=== PATIENT | female | born 1985 ===

== ENCOUNTER 2025-05-24 13:57 | Outpatient (REF) | payer BC, SELFPAY ==
--- OUTSIDE RECORDS SUMMARY | 2025-05-24 14:48 | XMS_ITS | Clinical Summary ---
Author Organization [facility] Address [address] [place] [address] Phone Care Team Providers Care Carbon Lamp Cleaner Name Role Phone Carolyn Marin MD Primary Care Provider [phone] Surgical History Surgery Date Site/Laterality Comments SECTION PROCEDURE: HISTORICAL CERVICAL BIOPSY W/ LOOP ELEC TRODE EXCISION PROCEDURE: TX CONIZATION CERVIX W/WO D&C RPR ELTRD EXC SALPINGOOPHORECTOMY Bilateral PROCEDURE: TX LAPAROSCOPY W/RMVL ADNEXAL STRUCTURES; COMMENT: Salpingectomy only Medical History Medical History Date Comments Patient denies medical problems DX:Patient denies medical problems Family History Medical History Relation Name Comments No Known Problems Brother 1 No Known Problems Brother 2 No Known Problems Brother 3 No Known Problems Brother 4 Heart attack Father Other cancer Maternal Grandmother Stomach cancer Breast cancer Neg Hx Colon cancer Neg Hx Ovarian cancer Neg Hx Uterine cancer Neg Hx Relation Name Status Comments Brother 1 Alive Brother 2 Alive Brother 3 Alive Brother 4 Alive Father Maternal Grandmother Mother Alive Social History Tobacco Use Types Packs/Day Years Used Date Smoking Tobacco: Never Smokeless Tobacco: Never Alcohol Use Standard Drinks/Week Comments Yes 0 (1 standard drink = 0.6 oz pur e alcohol) Comments Unknown Sex and Gender Information Value Date Recorded Sex Assigned at Not on file Legal Sex Female 8:34 PM EST Gender Identity Not on file Sexual Orientation Not on file Obstetrics History Last Filed Vital Signs Vital Sign Reading Time Taken Comments Blood Pressure 125/75 12/23/2023 1:37 PM EDT Sitting R Arm Pulse 83 12/23/2023 1:37 PM EDT Temperature - - Respiratory Rate - - Oxygen Saturation - - Inhaled Oxygen Concentration - - Weight 73.6 kg (162 lb 3.2 oz) 12/23/2023 1:37 PM EDT Height 165.1 cm (5' 5 ) 12/23/2023 1:37 PM EDT Body Mass Index 26.99 12/23/2023 1:37 PM EDT Plan of Treatment Health Maintenance Due Date Last Done Comments Breast Cancer Screening 1983 Hepatitis B Vaccines (1 of 3 - 19+ 3-dose series) 2002 DTaP,Tdap,and Td Vaccines (2 - Td or Tdap) 07/20/2022 07/20/2012 HIV Screening 09/12/2022 Hepatitis C Screening 09/12/2022 Social Influencers of Health Screening 09/12/2022 COVID-19 Vaccine ( - 2023-2 5 season) 2024 Depression Screening 10/11/2024 Influenza Vaccine (#1) 2025 Cervical Cancer Screening: P ap Smear 12/22/2026 12/23/2023, 06/29/2018 HIB Vaccines Aged Out No longer eligi ble based on patient's age to complete this topic HPV Vaccines Aged Out No longer eligi ble based on patient's age to complete this topic Hepatitis A Vaccines Aged Out No long er eligible based on patient's age to complete this topic IPV Vaccines Aged Out No longer eligi ble based on patient's age to complete this topic MMR Vaccines Aged Out No longer eligi ble based on patient's age to complete this topic Meningococcal ACWY Vaccine Aged Out N o longer eligible based on patient's age to complete this topic Meningococcal B Vaccine Aged Out No l onger eligible based on patient's age to complete this topic Pneumococcal Vaccine: Pediatrics (0 to 5 Years) and At-Risk Patients (6 to 49 Years) Aged Out No longer eligible b ased on patient's age to complete this topic RSV Immunization Patients Under 20 months Aged Out No longer eligible b ased on patient's age to complete this topic Varicella Vaccines Aged Out No longer eligible based on patient's age to complete this topic Procedures Procedure Name Priority Date/Time Associated Diagnosis Comments PAP SMEAR Routine 12/23/2023 from Last 3 Months or Most Recently Relevant to Health Maintenance Results * Pap smear (12/23/2023) 12/23/2023 Narrative HISTORICAL TESTING LAB RESULTING AGENCY - 12/30/2023 4:36 PM EDT [id number] THINPREP PAP, IMAGED: NEGATIVE FOR SQUAMOUS INTRAEPITHELIAL LESION AND MALIGNANCY . KECIA KERN(ASCP) (CASE ELECTRONICALLY SIGNED 12 30 2023) RESULT OF APTIMA HIGH RISK HPV ASSAY: HIGH RISK HPV: NEGATIVE (SEROTYPES 16,18,31,33,35,39,45,51,52,56,58,59,66,68) COMPLETED ON 2023-12-27 ADEQUACY: SATISFACTORY ENDOCERVICAL/TRANSFORMATION ZONE COMPONENT PRESENT. SOURCE: THINPREP PAP HPV ANY DX: REFLEX 16 AND 18, CERVICAL, IMAGED CLINICAL INFORMATION: HPV ANY DIAGNOSIS. HORMONES, PAP HX NEGATIVE, [Z01.419] Bradly Miguel [facility] CYTOLOGY ORDERABLES Final Result HISTORICAL TESTING LAB RESULTING AGENCY from Last 3 Months or Most Recently Relevant to Health Maintenance [place] [address] [address] [place] [address] Care Teams Carbon Lamp Cleaner Relationship Specialty Start Date End Date Carolyn Marin MD PCP - General 11/18/22
--- OUTSIDE RECORDS SUMMARY | 2025-05-24 14:48 | XMS_ITS | Clinical Summary ---
Author Organization [facility] Address [address] [place] [address] Care Team Providers Care Math And Science Instructor Name Role Phone Shahid Navarro MD Primary Care Provider [phone] Allergies No known active allergies Medications Medication Sig Dispensed Refills Start Date End Date Status FLUoxetine (PROZAC) 20 MG capsule Take 20 mg by mouth daily. 0 Active escitalopram (LEXAPRO) 20 MG tablet Take 20 mg by mouth daily. 0 Active Active Problems Problem Noted Date Diagnosed Date Cholecystitis 01/13/2018 Menorrhagia with regular cycle 07/02/2017 Iron deficiency anemia due to chronic blood loss 07/02/2017 Family History Medical History Relation Name Comments No Sig Med Hx Brother Heart attack Father Hypertension Mother No Sig Med Hx Sister Relation Name Status Comments Brother Father Mother Sister Social History Tobacco Use Types Packs/Day Years Used Date Smoking Tobacco: Never Smokeless Tobacco: Never Alcohol Use Standard Drinks/Week Comments No 0 (1 standard drink = 0.6 oz pur e alcohol) Sex and Gender Information Value Date Recorded Sex Assigned at Not on file Gender Identity Not on file Sexual Orientation Not on file Last Filed Vital Signs Vital Sign Reading Time Taken Comments Blood Pressure 114/68 01/13/2018 1:08 PM EDT Pulse 72 01/13/2018 1:08 PM EDT Temperature - - Respiratory Rate - - Oxygen Saturation - - Inhaled Oxygen Concentration - - Weight 87.5 kg (193 lb) 01/13/2018 1:08 PM EDT Height 165.1 cm (5' 5 ) 01/13/2018 1:08 PM EDT Body Mass Index 32.12 01/13/2018 1:08 PM EDT Plan of Treatment Health Maintenance Due Date Last Done Comments Hepatitis B Vaccines (1 of 3 - 3-dose series) 1983 Hepatitis C Screening 1983 COVID-19 Vaccine (#1) 05/11/1984 Depression Screening 1995 Preventative Health Evaluation 2001 DTap / Tdap / Td (1 - Tdap) 2002 Cervical Cancer Screening (P ap Smear) 2004 Influenza Vaccine (#1) 2025 Pneumococcal Vaccine Aged Out No long er eligible based on patient's age to complete this topic RSV Ped < 20 months Aged Out No longe r eligible based on patient's age to complete this topic Care Teams Math And Science Instructor Relationship Specialty Start Date End Date Shahid Navarro MD [address] [place] [id number] PCP - General Internal Medicine 07/02/17
== END 2025-05-24 13:58 | disposition home or self-care (01) ==
LOC: CF 13:57
DX: Z13.89 Encounter for screening for other disorder (principal)

== ENCOUNTER 2025-05-31 08:19 | Outpatient (REF) | payer SELFPAY | END 2025-05-31 08:20 | disposition home or self-care (01) | LOC: HO.HOSX 08:19 | DX: Z13.89 Encounter for screening for other disorder (principal) ==

== ENCOUNTER 2025-06-13 11:53 | Outpatient (REF) | payer BC, SELFPAY ==
--- NOTE | ~2025-06-13 | XR_ITS ---
EXAMINATION: XR FOREARM, LEFT CLINICAL INFORMATION: S52.90XA - Unspecified fracture of unspecified forearm, initial encounte... COMPARISON: May 15, 2025 TECHNIQUE: AP and lateral views of the left forearm were obtained. FINDINGS: Again seen is an oblique fracture through the middle diaphysis of the ulna. There is periosteal new bone formation along the dorsal margin of the fracture surrounding a cortical fragment. On the AP view, there is 15 degrees angulation and ulnar direction, distal to the fracture. There is also ulnar directed bowing of the distal radius compared to the radial head that was present on the original x-ray. XR/XR forearm LT 2V IMPRESSION: Healing fracture involving middle third diaphysis of the ulna. Chronic bowing of the distal forearm with ulnar deviation. Electronically signed by: Jorge Cole MD 06/13/2025 01:43 PM EDT
--- OUTSIDE RECORDS SUMMARY | 2025-06-13 14:28 | XMS_ITS | Clinical Summary ---
Author Organization [facility] Address [address] [place] [address] Care Team Providers Care Hand Surgeon Name Role Phone Shahid Navarro MD Primary Care Provider [phone]- [phone] Allergies No known active allergies Medications Medication [...] age to complete this topic Care Teams Hand Surgeon Relationship Specialty Start Date End Date Shahid Navarro MD [address] [place] [id number] PCP - General Internal Medicine 07/02/17
--- OUTSIDE RECORDS SUMMARY | 2025-06-13 14:28 | XMS_ITS | Clinical Summary ---
Author Organization [facility] Address [address] [place] [address] Phone Care Team Providers Care Business Information Manager Name Role Phone Carolyn Marin MD Primary Care Provider [phone] Surgical History Surgery Date Site/Laterality Comments SECTION [...] 09/12/2022 Social Influencers of Health Screening 09/12/2022 Depression Screening 10/11/2024 COVID-19 Vaccine ( - 2023-2 5 season) 2025 Influenza Vaccine (#1) 2025 Cervical Cancer Screening: [...] RESULTING AGENCY - 12/30/2023 4:36 PM EDT [id number] THINPREP PAP, IMAGED: NEGATIVE FOR SQUAMOUS INTRAEPITHELIAL [...] HORMONES, PAP HX NEGATIVE, [Z01.419] Bradly Miguel [facility] LAB CYTOLOGY ORDERABLES Final Result HISTORICAL TESTING LAB RESULTING AGENCY from Last 3 Months or Most Recently Relevant to Health Maintenance [place] [address] [place] [address] Care Teams Business Information Manager Relationship Specialty Start Date End Date Carolyn Marin MD PCP - General 11/18/22
== END 2025-06-13 11:54 | disposition home or self-care (01) ==
LOC: HO.HOSX 11:53
DX: S52.202D Unspecified fracture of shaft of left ulna, subsequent encounter for closed fracture with routine healing (principal); W10.9XXD Fall (on) (from) unspecified stairs and steps, subsequent encounter
CPT/HCPCS: 25530; 73090; 99202

== ENCOUNTER 2025-06-13 12:54 | Outpatient (AMB) | payer SELFPAY ==
--- NOTE | 2025-06-13 13:17 | A.OFFVIS_ITS ---
Vital Signs 06/13/25 13:26 Height 5 ft 5 in Weight 157 lb BMI 26.1 Handedness Right Intake Visit Reasons: UC f/u- LT ulnar fx DOI 05/15/25 Intake Note: Genet is a 39 year old right hand dominant woman who presents today for a fracture care visit for her left arm. Patient was seen at [facility] in [facility], DOI: 05/15/25. Reports she was going down her basement stairs with her laundry basket in her hands, unsure of how she tripped and fell. This is a FOOSH injury. Denies numbness and tingling. Reports she has pain at night after using her arm throughout the day. Splint was removed for x-rays and she states an increase in pain without the splint. She was prescribed ibuprofen 800 mg, if she is in a lot of pain she will take this before bed with relief. Splint was applied on 05/15/25 at urgent care and she says she has not removed it since. 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 She would like to discuss work status today. HPI HPI UC f/u- LT ulnar fx DOI 05/15/25: Details: Genet is a 39 year old right hand dominant woman who presents today for a fracture care visit for her left arm. Patient was seen at [facility] in [facility], DOI: 05/15/25. Reports she was going down her basement stairs with her laundry basket in her hands, unsure of how she tripped and fell. This is a FOOSH injury. Denies numbness and tingling. Reports she has pain at night after using her arm throughout the day. Splint was removed for x-rays and she states an increase in pain without the splint. She was prescribed ibuprofen 800 mg, if she is in a lot of pain she will take this before bed with relief. Splint was applied on 05/15/25 at urgent care and she says she has not removed it since. 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 She would like to discuss work status today. 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 Neuro: Normal sensation of the tips of all digits of the left hand at this time Vascular: Cap refill brisk Pain: No tenderness to palpation about left forearm, particularly over the ulnar shaft of the fracture ROM: Patient is able to make a closed fist and extend all digits of the left hand fully Range of motion of the left wrist slightly impaired Skin: No lacerations or abrasions. General: No ecchymosis, erythema, or evidence of infection. Psych: Appears grossly normal Affect normal Attitude cooperative Office Procedures AMB Fracture Care Fracture Billing Code: Fracture Billing Code Casting/Splints [id number]-[id number] Cast Application Procedure code (CPT) selection complete Results Reviewed Results Reviewed: X-rays obtained in the office today and independently reviewed by me, Clayton Duff PA-C, demonstrate minimally displaced fracture of the left ulnar shaft with evidence of early interval bony healing. Assessment & Plan Assessment & Plan (1) Fracture of left ulna, shaft: Code(s): S52.A - Unspecified fracture of shaft of left ulna, initial encounter for closed fracture Category: Medical Plan 1. Left ulnar shaft fracture Date of injury 05/15/2025 Patient is educated about this condition Patient is educated about the typical treatment course At this time, patient is placed into a short-arm cast that and just below the elbow Is encouraged to begin working on gentle range of motion of the left elbow, as placement into a sugar-tong splint for a month prior to being evaluated his likely caused some degree of stiffness in the left elbow OT also ordered for gentle range of motion of the left elbow Patient is to remain in his cast for 4 weeks Patient is educated on proper cast care and precautions Patient is educated she should not be doing any heavy lifting with the left hand, 2 lb weight limit strictly enforced Patient is advised that she can return to work on a light duty basis as long as there is accommodation for this 2 lb weight limit and keeping the cast clean and dry Follow-up in 4 weeks with repeat x-rays for reassessment, anticipate cast removal at that time, sooner with any acute concerns Orders: Orders XR forearm LT 2V 06/13/25 S52.209A - Unspecified fracture of shaft of unspecified ulna, initial encounter for closed fracture, S52.90XA - Unspecified fracture of unspecified forearm, initial encounter for closed fracture OT Evaluation and Treatment 06/13/25 S52.202A - Unspecified fracture of shaft of left ulna, initial encounter for closed fracture Coding Level of Care Code New Pt Level 3 (67588) Diagnoses Fracture of left ulna, shaft S52.202A CPT Codes Fracture Care - Fracture Billing Code: Fracture Billing Code ([id number]) Casting - CPT: 93578-[id number] Cast Application ([id number])
[2025-06-13 13:26] VITALS: BMI 26.1
== END 2025-06-13 14:34 | disposition home or self-care (01) ==
LOC: HO.HOS 12:55
DX: S52.202A Unspecified fracture of shaft of left ulna, initial encounter for closed fracture (principal)
CPT/HCPCS: 25530; 99203

== ENCOUNTER → 2025-06-13 13:01 | Outpatient (BNV) | payer BC, SELFPAY | PROVIDERS: Visit Provider Radiology Diagnostic Radiology | DX: S52.235D Nondisplaced oblique fracture of shaft of left ulna, subsequent encounter for closed fracture with routine healing (principal) | CPT/HCPCS: 73090 ==

== ENCOUNTER 2025-07-10 09:12 | Outpatient (REF) | payer BC, SELFPAY ==
--- NOTE | ~2025-07-10 | XR_ITS ---
EXAMINATION: XR FOREARM 2 VIEWS LEFT HISTORY: S52.90XA - Unspecified fracture of unspecified forearm, initial encounter... COMPARISON: Comparison is made with the prior examination dated 06/13/2025. FINDINGS: AP and lateral views of the left forearm are submitted. Osseous mineralization is normal. Again seen is a fracture of the mid to distal ulna diaphysis. There is greater callus formation noted, consistent with healing. The fracture line remains visible. The visualized wrist and elbow joint spaces are preserved. The soft tissues are unremarkable. XR/XR forearm LT 2V IMPRESSION: Healing fracture of the mid to distal ulna. Electronically signed by: Julio Nieto MD 07/10/2025 01:15 PM EDT
--- OUTSIDE RECORDS SUMMARY | 2025-07-10 09:57 | XMS_ITS | Patient Health Record ---
Author Organization [facility] [place] Address [address] [place] [address] Care Team Providers Care Beer Still Runner Compounder Name Role Phone Trish Fierro Unavailable [phone] Allergies No Known Allergies Reason For Referral Reason fell three weeks ago and fx her left arm. Did not get referred at that time. Still has original splint and some residual pain. Has appointment at [facility] tomorrow Diagnosis 1 Unspecified fracture of shaft of left ulna, initial encounter for closed fracture (S52.A) Referral Organization [facility] Referring Provider First Name Trish Referring Provider Last Name Sri Referred Provider Specialty Orthopedic S urgery Referral Priority Routine Reason patient wants to res ume iron infusions Diagnosis 1 Iron deficiency anem ia, unspecified (D50.9) Referral Organization [facility] Referring Provider First Name Trish Referring Provider Last Name Sri Referred Provider Specialty Hematology General Notes Sri Trish L 01:41:39 PM > Patient reports she was infused in the cancer treatment center Referral Priority Routine Medications Medication SIG (Take, Route, Frequency, Duration) Notes Start Date End Date Status Semaglutide (2 MG/DOSE) 8 MG/3ML Solution Pen-injector 1.25ml Subcutaneous weekly; Duration: 90 days 06/12/2025 Active Problems Problem Type SNOMED Code ICD Code Onset Dates Problem Status W/U Status Risk Notes Problem Iron deficiency anemia (63216873) Iron deficiency anemia, unspecified (D50.9) Active confirmed Vital Signs Heart Rate 79 /min 06/12/2025 Respiratory Rate 18 /min 06/12/2025 Blood pressure diastolic 80 mm Hg 06/12/2025 Weight-kg 70.76 kg 06/12/2025 Blood pressure systolic 120 mm Hg 06/12/2025 Weight 156 lbs 06/12/2025 Encounters Encounter Location Date Provider Diagnosis [facility] [place] [address] [place] [address] 06/12/2025 [facility] discharge follow-up Z09 and Weight loss counseling, encounter for Z71.3 Assessments Encounter Date Diagnosis (ICD Code) Assessment Notes Treatment Notes Treatment Clinical Notes Section Notes 06/12/2025 Weight loss counseling, encounter for (ICD-10 - Z71.3) patient seen in urgent care three weeks ago. Presents today for a referral to [facility] as she has a f/u appointlent tomorrow 06/12/2025 Hospital discharge follow-up (ICD-10 - Z09) patient seen in urgent care three weeks ago. Presents today for a referral to [facility] as she has a f/u appointlent tomorrow Plan Of Treatment No Information Insurance Providers Payer Name Payer Address Payer Phone Subscriber Number Group Number Insured Name Patient Relationship to Insured Coverage Start Date Coverage End Date Danilo [facility] [address] [address] [place] [address] [id number] TONY [id number] Self - patient is the insured
--- OUTSIDE RECORDS SUMMARY | 2025-07-10 09:57 | XMS_ITS | Clinical Summary ---
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 Construction Plant Operator Name Role Phone Bimal Baker MD Primary Care Provider [phone] Allergies No known active allergies Medications No known medications Active Problems Problem Noted Date Diagnosed Date Iron deficiency anemia due to chronic blood loss 07/02/2025 Encounters Date Type Department Care Team Description 07/02/2025 3:15 PM EDT Office Visit [facility] Hematology Oncology [address] [place] [phone] Kin Staton MD Microcytic anemia (Primary Dx); Iron deficiency anemia 06/25/2025 5:55 PM EDT - 06/25/2025 9:43 PM EDT Emergency [facility] Emergency [address] [place] [phone] Cole Hyatt MD Depression, unspecified depression type (Primary Dx); Anxiety Discharge Disposition: Home or Self Care 06/22/2025 Telephone [facility] Hematology Oncology [address] [place] [phone] Trish Fierro NP from Last 3 Months Surgical History Surgery Date Site/Laterality Comments SECTION PROCEDURE: HISTORICAL CERVICAL BIOPSY W/ LOOP ELEC TRODE EXCISION PROCEDURE: OH CONIZATION CERVIX W/WO D&C RPR ELTRD EXC SALPINGOOPHORECTOMY Bilateral PROCEDURE: OH LAPAROSCOPY W/RMVL ADNEXAL STRUCTURES; COMMENT: Salpingectomy only Medical History Medical History Date Comments Patient denies medical problems DX:Patient denies medical problems Anemia Family History Medical History Relation Name Comments [...] Sign Reading Time Taken Comments Blood Pressure 122/70 07/02/2025 3:20 PM EDT Pulse 77 07/02/2025 3:20 PM EDT Temperature 37 C (98.6 F) 07/02/2025 3:20 PM EDT Respiratory Rate 18 06/25/2025 5:39 PM EDT Oxygen Saturation 100% 07/02/2025 3:20 PM EDT Inhaled Oxygen Concentration - - Weight 70.8 kg (156 lb) 07/02/2025 3:20 PM EDT Height 165.1 cm (5' 5 ) 07/02/2025 3:20 PM EDT Body Mass Index 25.96 07/02/2025 3:20 PM EDT Plan of Treatment Upcoming Encounters Date Type Department Care Team (Late st Contact Info) Description 07/11/2025 1:00 PM EDT Appointment [facility] Infusion Center [address] [place] [phone] 09/10/2025 11:15 AM EST Office Visit [facility] Hematology Oncology [address] [place] [phone] Kin Staton MD [address] [place] [phone] Health Maintenance Due Date Last Done Comments Breast Cancer Screening 1983 Hepatitis B Vaccines (1 of 3 - 19+ 3-dose series) 2002 HPV Vaccines (1 - 3-dose SCD M series) 2010 DTaP,Tdap,and Td Vaccines (2 - Td or Tdap) 07/20/2022 07/20/2012 HIV Screening 09/12/2022 Hepatitis C Screening 09/12/2022 Social Influencers of Health Screening 09/12/2022 Depression Screening 10/11/2024 COVID-19 Vaccine ( - 2023-2 5 season) 2025 Influenza Vaccine (#1) 2025 Cervical Cancer Screening: P ap Smear 12/22/2026 12/23/2023, 06/29/2018 RSV Immunization Adult Patients (1 - 1-dose 75+ series) 2058 HIB Vaccines Aged Out No longer eligi [...] Procedure Name Priority Date/Time Associated Diagnosis Comments CBC WITH AUTO DIFFERENTIAL Routine 07/02/2025 3:50 PM EDT Microcytic anemia HEMOGLOBIN ELECTROPHORESIS Routine 07/02/2025 3:50 PM EDT Microcytic anemia VITAMIN B12 AND FOLATE Routine 3:50 PM EDT Microcytic anemia IRON AND TIBC Routine 07/02/2025 3:50 PM EDT Microcytic anemia FERRITIN Routine 07/02/2025 3:50 PM EDT Microcytic anemia CBC AND DIFFERENTIAL Routine 07/02/2025 3:50 PM EDT Microcytic anemia ECG ANNOTATED 06/26/2025 POC , URINE DIAGNOSTIC STAT 06/25/2025 6:49 PM EDT METHADONE SCREEN, URINE STAT 06/25/20 6:44 PM EDT PHENCYCLIDINE, URINE STAT 06/25/2025 6:44 PM EDT BUPRENORPHINE SCREEN, URINE STAT 06/25/2025 6:44 PM EDT DRUG ABUSE SCREEN 8A PANEL, URINE STAT 06/25/2025 6:44 PM EDT CBC WITH AUTO DIFFERENTIAL STAT 06/25/2025 6:43 PM EDT SALICYLATE LEVEL STAT 06/25/2025 6:43 PM EDT ETHANOL STAT 06/25/2025 6:43 PM EDT ACETAMINOPHEN LEVEL STAT 06/25/2025 6 :43 PM EDT THYROID STIMULATING HORMONE WITH REFLEX TO FREE T4 AND FREE T3 STAT 06/25/2025 6:43 PM EDT COMPREHENSIVE METABOLIC PANEL STAT 06/25/2025 6:43 PM EDT CBC AND DIFFERENTIAL STAT 06/25/2025 6:43 PM EDT ECG 12-LEAD STAT 06/25/2025 5:30 PM EDT IRON Routine 06/22/2025 1:23 PM EDT Iron deficiency anemia, unspecified PAP SMEAR Routine 12/23/2023 from Last 3 Months or Most Recently Relevant to Health Maintenance Results * (ABNORMAL) Vitamin B12 and folate (07/02/2025 3:50 PM EDT) [facility] Vitamin B-12 1,710(H) 250 - 900 pcg/mL LAB CHEMISTRY METHOD 07/02/2025 5:39 PM EDT [facility] Folate 13.7 2.8 - 17.0 ng/ml LAB CHEMISTRY METHOD 07/02/2025 5:39 PM EDT [facility] Blood Venous blood specimen / Unknown Venipuncture / Unknown 07/02/2025 3:50 PM EDT 07/02/2025 4:31 PM EDT [facility] Nury Staton MD LAB BLOOD ORDERABLES Final R esult [facility] [address] [place] [address], [place] [phone] * (ABNORMAL) CBC auto differential (07/02/2025 3:50 PM EDT) Only the most recent of2 resultswithin the time period is included. [facility] WBC 5.9 4.8 - 10.8 K/mcL LAB HEMETOLOGY METHOD 07/02/2025 4:43 PM EDT [facility] RBC 4.60 3.80 - 4.80 M/mcL LAB HEMETOLOGY METHOD 07/02/2025 4:43 PM EDT [facility] Hemoglobin 8.1(L) 11.5 - 16.0 g/dL LAB HEMETOLOGY METHOD 07/02/2025 4:43 PM EDT [facility] Hematocrit 28.1(L) 35.0 - 47.0 % LAB HEMETOLOGY METHOD 07/02/2025 4:43 PM [facility] MCV 61.2(L) 79.0 - 98.0 FL LAB HEMETOLOGY METHOD 07/02/2025 4:43 PM [facility] MCH 17.6(L) 27.0 - 32.0 pcg LAB HEMETOLOGY METHOD 07/02/2025 4:43 PM [facility] MCHC 28.8(L) 32.0 - 37.0 g/dL LAB HEMETOLOGY METHOD 07/02/2025 4:43 PM [facility] RDW 20.0(H) 11.0 - 15.0 % LAB HEMETOLOGY METHOD 07/02/2025 4:43 PM [facility] Platelets 550(H) 130 - 400 K/mcL LAB HEMETOLOGY METHOD 07/02/2025 4:43 PM [facility] MPV 10.0 7.0 - 11.0 FL LAB HEMETOLOGY METHOD 07/02/2025 4:43 PM [facility] NRBC 0.0 <1.0 % LAB HEMETOLOGY METHOD 07/02/2025 4:43 PM [facility] NRBC Absolute 0.00 <0.10 K/mcL LAB HEMETOLOGY METHOD 07/02/2025 4:43 PM [facility] Neutrophils Relative 63.4 % LAB HEMETOLOGY METHOD 07/02/2025 4:43 PM [facility] Lymphocytes Relative 23.1 % LAB HEMETOLOGY METHOD 07/02/2025 4:43 PM [facility] Monocytes Relative 8.6 % LAB HEMETOLOGY METHOD 07/02/2025 4:43 PM [facility] Eosinophils Relative 4.1 % LAB HEMETOLOGY METHOD 07/02/2025 4:43 PM [facility] Basophils Relative 0.5 % LAB HEMETOLOGY METHOD 07/02/2025 4:43 PM EDT [facility] Immature Granulocytes Relative 0.3 % LAB HEMETOLOGY METHOD 07/02/2025 4:43 PM EDT [facility] Neutrophils Absolute 3.74 1.50 - 7.00 K/mcL LAB HEMETOLOGY METHOD 07/02/2025 4:43 PM EDT [facility] Lymphocytes Absolute 1.36 1.00 - 5.00 K/mcL LAB HEMETOLOGY METHOD 07/02/2025 4:43 PM EDT [facility] Monocytes Absolute 0.51 0.20 - 1.00 K/mcL LAB HEMETOLOGY METHOD 07/02/2025 4:43 PM EDT [facility] Eosinophils Absolute 0.24 0.00 - 0.50 K/mcL LAB HEMETOLOGY METHOD 07/02/2025 4:43 PM EDT [facility] Basophils Absolute 0.03 0.00 - 0.20 K/mcL LAB HEMETOLOGY METHOD 07/02/2025 4:43 PM EDT [facility] Immature Granulocytes Absolute 0.02 0.00 - 0.03 K/mcL LAB HEMETOLOGY METHOD 07/02/2025 4:43 PM EDT [facility] Blood Venous blood specimen / Unknown Venipuncture / Unknown 07/02/2025 3:50 PM EDT 07/02/2025 4:31 PM EDT us Kin Staton MD LAB BLOOD ORDERABLES Final R esult [facility] [address] [place] [address], * (ABNORMAL) Hemoglobin electrophoresis (07/02/2025 3:50 PM EDT) Hemoglobin A1 98.9(H) 96.5 - 97.8 % 07/05/2025 11:44 AM EDT [facility] Hemoglobin A2 1.1(L) 2.2 - 3.2 % 07/05/2025 11:44 AM EDT [facility] Hemoglobin F 0.0 <2.0 % 07/05/2025 11:44 AM EDT [facility] Hemoglobin S 0.0 0.0 % 07/05/2025 11:44 AM EDT [facility] Hemoglobin C 0.0 0.0 % 07/05/2025 11:44 AM EDT [facility] Interpretation See Below 07/05/2025 11:44 AM EDT [facility] Comment: No abnormal hemoglobin variants seen on hemoglobin electrophoresis. Hemoglobin A2 is decreased. Common causes include, but are not limited to, iron deficiency, alpha thalassemia, and delta thalassemia. Test performed at [facility], [address] , [place] [address] Abigail Perez MD, PhD - Machinist Linotype Blood Venous blood specimen / Unknown Venipuncture / Unknown 07/02/2025 3:50 PM EDT 07/02/2025 4:31 PM EDT us Kin Staton MD LAB BLOOD ORDERABLES Final R esult [facility] [address] [place] [address] * (ABNORMAL) Iron and TIBC (07/02/2025 3:50 PM EDT) Iron 10(L) 40 - 150 mcg/dL LAB CHEMISTRY METHOD 07/02/2025 5:39 PM EDT [facility] TIBC 463(H) 250 - 450 mcg/dL LAB CHEMISTRY METHOD 07/02/2025 5:39 PM EDT [facility] Iron Saturation 2(L) 15 - 50 % LAB CHEMISTRY METHOD 07/02/2025 5:39 PM EDT [facility] Blood Venous blood specimen / Unknown Venipuncture / Unknown 07/02/2025 3:50 PM EDT 07/02/2025 4:31 PM EDT Kin Staton MD LAB BLOOD ORDERABLES Final R esult [facility] [address] [place] [address], [place] [phone] * (ABNORMAL) Ferritin (07/02/2025 3:50 PM EDT) [facility] Ferritin 3(L) 8 - 252 ng/mL LAB CHEMISTRY METHOD 07/02/2025 5:55 PM EDT [facility] Comment:Results verified by repeat testing Blood Venous blood specimen / Unknown Venipuncture / Unknown 07/02/2025 3:50 PM EDT 07/02/2025 4:31 PM EDT Kin Staton MD LAB BLOOD ORDERABLES Final R esult Performing Organization Address City/[facility]/ZIP Co de Phone Number [facility] [address] [place] [address], [place] [phone] * ECG-Annotated (06/26/2025) Result [facility] Provider Onbase ECG ORDERABLES Final Result * POC , urine manually resulted (06/25/2025 6:49 PM EDT) [facility] HCG, Ur POC Negative Negative POC hCG Int QC Pass? Yes Yes EXPIRATION DATE POC 12/19/2026 LOT NUMBER POC [id number] Urine Urine specimen obtained by clean catch procedure / Unknown 06/25/2025 6:49 PM EDT Cole Hyatt MD POINT OF CARE TEST ENTER/EDIT OR DERABLES Final Result * Drug abuse screen 8a panel, urine (06/25/2025 6:44 PM EDT) [facility] Amphetamine Screen, Ur Negative Negative LAB CHEMISTRY METHOD 06/25/2025 7:40 PM EDT [facility] Comment:Certain OTC medicati ons containing ephedrine, phenylephrine, pseudoephedrine and phenylpropanolamine can cause false positive results. Barbiturate Screen, Ur Negative Negative LAB CHEMISTRY METHOD 06/25/2025 7:40 PM EDT [facility] Benzodiazepine Screen, Ur Negative Negative LAB CHEMISTRY METHOD 06/25/2025 7:40 PM EDT [facility] Cocaine Screen, Ur Negative Negative LAB CHEMISTRY METHOD 06/25/2025 7:40 PM EDT [facility] Opiate Screen, Ur Negative Negative LAB CHEMISTRY METHOD 06/25/2025 7:40 PM EDT [facility] Cannabinoid (THC) Screen, Ur Negative Negative LAB CHEMISTRY METHOD 06/25/2025 7:40 PM EDT [facility] Comment:Specimens from patie nts taking pantoprazole sodium (Protonix) have been shown to produce false positive results. Oxycodone Screen, Ur Negative Negative LAB CHEMISTRY METHOD 06/25/2025 7:40 PM EDT [facility] Fentanyl, Ur Negative Negative LAB CHEMISTRY METHOD 06/25/2025 7:40 PM EDT [facility] Urine Urine specimen obtained by clean catch procedure / Unknown Non-blood Collection / Unknown 06/25/2025 6:44 PM EDT 06/25/2025 6:58 PM EDT Narrative [facility] - 06/25/2025 7:40 PM EDT Assay cutoffs: Amphetamines 1000 ng/mL Barbiturates 200 ng/mL Benzodiazepines 200 ng/mL Cocaine 300 ng/mL Fentanyl 1 ng/mL Opiates 300 ng/mL Oxycodone 100 ng/mL THC 50 ng/mL Semi-quantitative assay for screening purposes only. Unconfirmed screening result should not be used for non-medical purposes. *ALTERNATE METHOD CONFIRMATION DONE UPON REQUEST ONLY* us Cole Hyatt MD LAB URINE ORDERABLES Final Resul t [facility] [address] [place] [address], [place] [phone] * Buprenorphine screen, urine (06/25/2025 6:44 PM EDT) [facility] Buprenorphine Screen Urine Negative Negative LAB CHEMISTRY METHOD 06/25/2025 7:40 PM EDT [facility] Urine Urine specimen obtained by clean catch procedure / Unknown Non-blood Collection / Unknown 06/25/2025 6:44 PM EDT 06/25/2025 6:58 PM EDT Narrative [facility] - 06/25/2025 7:40 PM EDT Assay cutoff 5 ng/mL Semi-quantitative assay for screening purposes only. Unconfirmed screening result should not be used for non-medical purposes. *ALTERNATE METHOD CONFIRMATION DONE UPON REQUEST ONLY* us Cole Hyatt MD LAB URINE ORDERABLES Final Resul t Performing Organization Address City/[facility] Co de Phone Number [facility] [address] [place] [address], [place] [phone] * Methadone, urine (06/25/2025 6:44 PM EDT) [facility] Methadone Screen, Urine Negative Negative LAB CHEMISTRY METHOD 06/25/2025 7:40 PM EDT [facility] Comment: Assay cutoff 300 ng/mL Semi-quantitative assay for screening purposes only. Unconfirmed screening result should not be used for non-medical purposes. *ALTERNATE METHOD CONFIRMATION DONE UPON REQUEST ONLY* Urine Urine specimen obtained by clean catch procedure / Unknown Non-blood Collection / Unknown 06/25/2025 6:44 PM EDT 06/25/2025 6:58 PM EDT us Cole Hyatt MD LAB URINE ORDERABLES Final Resul t Performing Organization Address City/[facility]/ZIP Co de Phone Number [facility] [address] [place] [address], [place] [phone] * Phencyclidine, urine (06/25/2025 6:44 PM EDT) Pathologist [facility] PCP Scrn, Ur Negative Negative LAB CHEMISTRY METHOD 06/25/2025 7:40 PM EDT [facility] Comment: Assay cutoff 25 ng/mL Semi-quantitative assay for screening purposes only. Unconfirmed screening result should not be used for non-medical purposes. *ALTERNATE METHOD CONFIRMATION DONE UPON REQUEST ONLY* Urine Urine specimen obtained by clean catch procedure / Unknown Non-blood Collection / Unknown 06/25/2025 6:44 PM EDT 06/25/2025 6:58 PM EDT us Cole Hyatt MD LAB URINE ORDERABLES Final Resul t Performing Organization Address [facility]/ZIP Co de Phone Number [facility] [address] [place] [address], [place] [phone] * Thyroid stimulating hormone with reflex to free t4 and free t3 (06/25/2025 6:43 PM EDT) [facility] TSH 1.67 0.40 - 4.00 mcIU/mL LAB CHEMISTRY METHOD 06/25/2025 7:59 PM EDT [facility] Blood Venous blood specimen / Unknown Venipuncture / Unknown 06/25/2025 6:43 PM EDT 06/25/2025 6:58 PM EDT us Cole Hyatt MD LAB BLOOD ORDERABLES Final Resul t [facility] [address] [place] [address], [place] [phone] * Ethanol (06/25/2025 6:43 PM EDT) [facility] Ethanol Level <3 0 - 10 mg/dL LAB CHEMISTRY METHOD 06/25/2025 7:31 PM EDT [facility] Blood Venous blood specimen / Unknown Venipuncture / Unknown 06/25/2025 6:43 PM EDT 06/25/2025 6:58 PM EDT us Cole Hyatt MD LAB BLOOD ORDERABLES Final Resul t Performing Organization Address [facility]/ZIP Co de Phone Number [facility] [address] [place] [address], [place] [phone] * (ABNORMAL) Acetaminophen level (06/25/2025 6:43 PM EDT) Acetaminophen Level <2.0(L) 10.0 - 30.0 mcg/mL LAB CHEMISTRY METHOD 06/25/2025 7:37 PM EDT [facility] Blood Venous blood specimen / Unknown Venipuncture / Unknown 06/25/2025 6:43 PM EDT 06/25/2025 6:58 PM EDT us Cole Hyatt MD LAB BLOOD ORDERABLES Final Resul t Performing Organization Address [facility] de Phone Number [facility] [address] [place] [address], [place] [phone] * (ABNORMAL) Salicylate level (06/25/2025 6:43 PM EDT) Salicylate Level <1.7(L) 2.0 - 29.0 mg/dL LAB CHEMISTRY METHOD 06/25/2025 7:31 PM EDT [facility] Blood Venous blood specimen / Unknown Venipuncture / Unknown 06/25/2025 6:43 PM EDT 06/25/2025 6:58 PM EDT us Cole Hyatt MD LAB BLOOD ORDERABLES Final Resul t Performing Organization Address [facility] Co de Phone Number [facility] [address] [place] [address], [place] [phone] * Comprehensive metabolic panel (06/25/2025 6:43 PM EDT) Sodium 137 133 - 145 mmol/L LAB CHEMISTRY METHOD 06/25/2025 7:32 PM [facility] Potassium 3.8 3.5 - 5.5 mmol/L LAB CHEMISTRY METHOD 06/25/2025 7:32 PM [facility] Chloride 105 96 - 110 mmol/L LAB CHEMISTRY METHOD 06/25/2025 7:32 PM [facility] CO2 25 21 - 32 mmol/L LAB CHEMISTRY METHOD 06/25/2025 7:32 PM [facility] Anion Gap 7 3 - 11 LAB CHEMISTRY METHOD 06/25/2025 7:32 PM [facility] Glucose 89 70 - 100 mg/dL LAB CHEMISTRY METHOD 06/25/2025 7:32 PM [facility] BUN 11 5 - 25 mg/dL LAB CHEMISTRY METHOD 06/25/2025 7:32 PM [facility] Creatinine 0.79 0.50 - 1.10 mg/dL LAB CHEMISTRY METHOD 06/25/2025 7:32 PM [facility] eGFR 97 >=60 mL/min/1. 73m2 LAB CHEMISTRY METHOD 06/25/2025 7:32 PM [facility] Comment:Calculation based on the Chronic Kidney Disease Epidemiology Collaboration (CKD-EPI) equation refit without adjustment for race. BUN/Creatinine Ratio 13.9 LAB CHEMISTRY METHOD 06/25/2025 7:32 PM [facility] Calcium 8.9 8.5 - 10.5 mg/dL LAB CHEMISTRY METHOD 06/25/2025 7:32 PM [facility] AST (SGOT) 13 10 - 42 unit/L LAB CHEMISTRY METHOD 06/25/2025 7:32 PM [facility] ALT (SGPT) 17 10 - 60 unit/L LAB CHEMISTRY METHOD 06/25/2025 7:32 PM EDT [facility] Alkaline Phosphatase 65 42 - 121 unit/L LAB CHEMISTRY METHOD 06/25/2025 7:32 PM EDT [facility] Total Protein 7.4 6.0 - 8.0 g/dL LAB CHEMISTRY METHOD 06/25/2025 7:32 PM EDT [facility] Albumin 3.8 3.2 - 5.0 g/dL LAB CHEMISTRY METHOD 06/25/2025 7:32 PM EDT [facility] Total Bilirubin 0.2 0.0 - 1.4 mg/dL LAB CHEMISTRY METHOD 06/25/2025 7:32 PM EDT [facility] Blood Venous blood specimen / Unknown Venipuncture / Unknown 06/25/2025 6:43 PM EDT 06/25/2025 6:58 PM EDT Cole Hyatt MD LAB BLOOD ORDERABLES Final Resul t Performing Organization Address City/[facility]/ZIP Co de Phone Number [facility] [address] [place] [address], [place] [phone] * ECG 12 lead (06/25/2025 5:30 PM EDT) Ventricular Rate ECG 94 BPM GEMUSE Atrial Rate 94 BPM GEMUSE P-R Interval 152 ms GEMUSE QRS Duration 72 ms GEMUSE Q-T Interval 358 ms GEMUSE QTc 447 ms GEMUSE P Wave Morton 73 degrees GEMUSE R Morton 82 degrees GEMUSE T Morton 21 degrees GEMUSE ECG Interpretation Normal sinus rhythm No previous ECGs available Confirmed by MOISES BASHIR ([id number]) on 06/26/2025 8:05:58 AM GEMUSE 06/25/2025 5:30 PM EDT 06/26/2025 8:05 AM EDT Cole Hyatt MD ECG ORDERABLES Final Result Performing Organization Address City/[facility]/ZIP Co de Phone Number [facility] * (ABNORMAL) Iron (06/22/2025 1:23 PM EDT) Iron 13(L) 40 - 150 mcg/dL LAB CHEMISTRY METHOD 06/22/2025 4:28 PM EDT [facility]) [facility] Blood Venous blood specimen / Unknown Venipuncture / Unknown 06/22/2025 1:23 PM EDT 06/22/2025 3:45 PM EDT us Trish Fierro OCCUPATIONAL MEDICINE OFFICER LAB BLOOD ORDERABLES Final Res ult [facility] [address] [place] [address], [place] [phone] * Pap smear (12/23/2023) 12/23/2023 Narrative HISTORICAL TESTING LAB RESULTING AGENCY - 12/30/2023 4:36 PM EDT [id number] THINPREP PAP, IMAGED: NEGATIVE FOR SQUAMOUS INTRAEPITHELIAL LESION AND MALIGNANCY . KECIA KERN(ASCP) (CASE ELECTRONICALLY SIGNED 12 30 2023) RESULT OF APTIMA HIGH RISK HPV ASSAY: HIGH RISK HPV: NEGATIVE (SEROTYPES 16,18,31,33,35,39,45,51,52,56,58,59,66,68) COMPLETED ON 2023-12-27 ADEQUACY: SATISFACTORY ENDOCERVICAL/TRANSFORMATION ZONE COMPONENT PRESENT. SOURCE: THINPREP PAP HPV ANY DX: REFLEX 16 AND 18, CERVICAL, IMAGED CLINICAL INFORMATION: HPV ANY DIAGNOSIS. HORMONES, PAP HX NEGATIVE, [[id number]] us Bradly Miguel CNM LAB CYTOLOGY ORDERABLES Final Result HISTORICAL TESTING LAB RESULTING AGENCY from Last 3 Months or Most Recently Relevant to Health Maintenance Insurance [facility] Care Teams Construction Plant Operator Relationship Specialty Start Date End Date Bimal Baker MD [address] [place] [phone] PCP - General Internal Medicine 07/02/25
--- OUTSIDE RECORDS SUMMARY | 2025-07-10 09:57 | XMS_ITS | Clinical Summary ---
Author Organization [facility] Address [address] [place] [address] Care Team Providers Care Recreation Superintendent Name Role Phone Shahid Navarro MD Primary Care Provider [phone] Allergies No known active allergies Medications Medication [...] age to complete this topic Care Teams Recreation Superintendent Relationship Specialty Start Date End Date Shahid Navarro MD [address] [place] [id number] PCP - General Internal Medicine 07/02/17
== END 2025-07-10 09:13 | disposition home or self-care (01) ==
LOC: HO.HOSX 09:12
DX: Z47.89 Encounter for other orthopedic aftercare (principal); S52.202D Unspecified fracture of shaft of left ulna, subsequent encounter for closed fracture with routine healing; X58.XXXD Exposure to other specified factors, subsequent encounter
CPT/HCPCS: 29075; 73090

== ENCOUNTER 2025-07-10 12:54 | Outpatient (AMB) | payer BC, SELFPAY ==
--- NOTE | 2025-07-10 12:58 | A.OFFVIS_ITS ---
Vital Signs 07/10/25 13:02 Height 5 ft 5 in Weight 157 lb BMI 26.1 Intake Visit Reasons: OV- LT ulnar fx DOI 05/15/25 Intake Note: Genet is a 39 year old right hand dominant woman who presents today for follow up status post Left Ulnar Shaft Fracture, DOI: 05/15/25. At her last visit she was placed into a short-arm cast. She was referred to Occupational Therapy and placed in a 2 lb weight restriction. Patient reports she continues having pain on the ulnar aspect of the wrist. She is not taking any pain medication at this time. Allergies No Known Allergies Allergy (Verified 07/10/25 13:18) HPI HPI OV- LT ulnar fx DOI 05/15/25: Details: Genet is a 39 year old right hand dominant woman who presents today for follow up status post Left Ulnar Shaft Fracture, DOI: 05/15/25. At her last visit she was placed into a short-arm cast. She was referred to Occupational Therapy and placed in a 2 lb weight restriction. Patient reports she continues having pain on the ulnar aspect of the wrist. She is not taking any pain medication at this time. 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 Neuro: Normal sensation of the tips of all digits of the left hand at this time Vascular: Cap refill brisk Pain: No tenderness to palpation about left forearm, particularly over the ulnar shaft of the fracture ROM: Patient is able to make a closed fist and extend all digits of the left hand fully Range of motion of the left wrist slightly impaired Skin: No lacerations or abrasions. General: No ecchymosis, erythema, or evidence of infection. Psych: Appears grossly normal Affect normal Attitude cooperative Office Procedures Casting/Splints 38556-Hrklrxy Cast Application Procedure code (CPT) selection complete Results Reviewed Results Reviewed: X-rays obtained in the office today and independently reviewed by me, Clayton Duff PA-C, demonstrate minimally displaced fracture of the left ulnar shaft with evidence of interval bony healing. Assessment & Plan Assessment & Plan (1) Fracture of left ulna, shaft: Code(s): S52.A - Unspecified fracture of shaft of left ulna, initial encounter for closed fracture Category: Medical Plan 1. Fracture of the left ulnar shaft Date of injury 05/15/2025 Patient appears to be recovering fairly well from her fracture Patient is educated about the typical recovery course At this time, patient is once again placed into a cast, however at this point it will be changed to a short-arm cast Patient will work on gentle pronation and supination in the short-arm cast to prevent stiffness as well as healing of the ulna that could fused to the radius if pronation and supination and not resumed Patient is educated on proper cast care and precautions 1-2 lb weight limit reinforced in the left hand Patient understands this and is amenable to this plan Follow-up in 2-3 weeks, anticipate cast removal at that time, sooner with any acute concerns Orders: Orders XR forearm LT 2V Today S52.209A - Unspecified fracture of shaft of unspecified ulna, initial encounter for closed fracture, S52.90XA - Unspecified fracture of unspecified forearm, initial encounter for closed fracture Coding Level of Care Code Global (12226) Diagnoses Fracture of left ulna, shaft S52.A CPT Codes Casting - CPT: 49803-Lwwvjwl Cast Application ([id number])
[2025-07-10 13:02] VITALS: BMI 26.1
== END 2025-07-10 14:02 | disposition home or self-care (01) ==
LOC: HO.HOS 12:55
DX: S52.202A Unspecified fracture of shaft of left ulna, initial encounter for closed fracture (principal)
CPT/HCPCS: 29075; 99024

== ENCOUNTER → 2025-07-10 12:56 | Outpatient (BNV) | payer BC, SELFPAY | PROVIDERS: Visit Provider Radiology Diagnostic Radiology | DX: S52.602D Unspecified fracture of lower end of left ulna, subsequent encounter for closed fracture with routine healing (principal) | CPT/HCPCS: 73090 ==

== ENCOUNTER 2025-08-03 12:58 | Outpatient (REF) | payer BC, SELFPAY ==
--- NOTE | ~2025-08-03 | XR_ITS ---
EXAMINATION: XR FOREARM, LEFT CLINICAL INFORMATION: S52.90XA - Unspecified fracture of unspecified forearm, initial encounte... COMPARISON: July 10, 2025. TECHNIQUE: AP and lateral views of the left forearm were obtained. FINDINGS: Diagonally oriented fracture distal diaphysis of the ulna with a persistent 3 mm gap between the fragments. There is callus formation/periosteal bridging mostly in the dorsal and ulnar aspect of the fracture. The radius is intact. XR/XR forearm LT 2V IMPRESSION: Healing nonunion fracture, distal diaphysis left ulna. Electronically signed by: David Seo MD 08/03/2025 02:26 PM EDT
--- OUTSIDE RECORDS SUMMARY | 2025-08-03 14:58 | XMS_ITS | Clinical Summary ---
Author Organization [facility] [place] [address] Care Team Providers Care Manager Sports Name Role Phone Shahid Navarro MD Primary Care Provider [phone] Allergies No known active allergies Medications Medication [...] age to complete this topic Care Teams Manager Sports Relationship Specialty Start Date End Date Shahid Navarro MD [address] [place] [id number] PCP - General Internal Medicine 07/02/17
--- OUTSIDE RECORDS SUMMARY | 2025-08-03 14:58 | XMS_ITS | Encounter Summary ---
Author Organization [facility] [place] [address] Care Team Providers Care Edge Banding Machine Offbearer Name Role Phone Bimal Baker MD Primary Care Provider [phone] Encounter Details Date Type Department Care Team (Latest Contact Info) Description 07/11/2025 Lab Requisition [facility] - Main Lab [address] [facility] [phone] Davie Howard MD [address] [phone] Encounter for gynecological examination (general) (routine) without abnormal findings Social History Tobacco Use Types Packs/Day Years Used Date Smoking Tobacco: Never Smokeless Tobacco: Never Alcohol Use Standard Drinks/Week Comments Yes 0 (1 standard drink = 0.6 oz pur e alcohol) Comments Unknown Sex and Gender Information Value Date Recorded Sex Assigned at Female 07/17/2025 1:44 PM EDT Legal Sex Female 8:34 PM EST Gender Identity Female 07/17/2025 1:44 PM EDT Sexual Orientation Lesbian or Lozada 07/17/2025 1: 44 PM EDT documented as of this encounter Plan of Treatment Upcoming Encounters Date Type Department Care Team (Late st Contact Info) Description 09/10/2025 11:15 AM EST Office Visit [facility] Hematology Oncology [address] [place] [address] Kin Staton MD [address] [place] [address] documented as of this encounter Procedures Procedure Name Priority Date/Time Associated Diagnosis Comments HPV WITH REFLEX GENOTYPE Routine 07/10/2025 12:00 AM EDT Encounter for gynecological examination (general) (routine) without abnormal findings PAP SMEAR Routine 07/10/2025 12:00 AM EDT Encounter for gynecological examination (general) (routine) without abnormal findings documented in this encounter Results * HPV with reflex genotype (07/10/2025 12:00 AM EDT) HPV Negative Negative LAB MICROBIOLOGY METHOD 07/12/2025 6:17 AM EDT [facility] Brushing/Spatula Cervix uteri structure / Unknown 07/10/2025 07/11/2025 8:04 AM EDT Davie Howard MD LAB MOLECULAR DIAGNOSTICS SAADIA VALLADARES Final Result [facility] [address] [place] [address], * Pap smear (07/10/2025 12:00 AM EDT) Interpretation Negative for intraepithelial lesion or malignancy 07/19/2025 4:29 PM EDT [facility] at 1629 EDT General Categorization Negative 07/19/2025 4:29 PM EDT [facility] Other Findings Shift in elisa suggestive of bacterial vaginosis 07/19/2025 4:29 PM EDT [facility] LMP 07/04/2025 07/19/2025 4:29 PM EDT [facility] Specimen Adequacy Satisfactory for evaluation, endocervical/ladd sformation zone component absent 07/19/2025 4:29 PM EDT [facility] Pap Methodology Liquid Based Pap Test 07/19/2025 4:29 PM EDT [facility] Disclaimer The Pap test is a screening test which carries an inherent false negative rate. These test results should be correlated with the patient's clinical findings and history. This Pap test was processed using an automated screening system. Technical cytopathology services provided by [facility], at [address] [place] [id number] (CLIA # [id number]/Sam Stanton MD, Patient Consumer Marketer.) 07/19/2025 4:29 PM EDT [facility] Console Pap Interpretation Reported 07/19/2025 4:29 PM EDT [facility] Brushing/Spatula Cervix uteri structure / Unknown 07/10/2025 07/11/2025 8:04 AM EDT us Davie Howard MD LAB CYTOLOGY ORDERABLES Final Result [facility] [address] [place] [address], documented in this encounter Visit Diagnoses Diagnosis Encounter for gynecological examination (general) (routine) without abnormal findings documented in this encounter Care Teams Edge Banding Machine Offbearer Relationship Specialty Start Date End Date Bimal Baker MD [address] [phone] PCP - General Internal Medicine 07/02/25 documented as of this encounter
--- OUTSIDE RECORDS SUMMARY | 2025-08-03 14:58 | XMS_ITS | Clinical Summary ---
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 Name Role Phone Bimal Baker MD Primary Care Provider [phone] Allergies No known active allergies Medications No known medications Active Problems Problem Noted Date Diagnosed Date Iron deficiency anemia due to chronic blood loss 07/02/2025 Encounters Date Type Department Care Team Description 07/20/2025 2:00 PM EDT - 07/20/2025 11:59 PM EDT Hospital Encounter [address] [phone] Iron deficiency anemia due to chronic blood loss (Primary Dx) Discharge Disposition: Home or Self Care 07/17/2025 1:44 PM EDT - 07/17/2025 11:59 PM EDT Hospital Encounter [facility] [address] [place] [phone] Iron deficiency anemia due to chronic blood loss (Primary Dx) Discharge Disposition: Home or Self Care 07/11/2025 1:00 PM EDT - 07/11/2025 11:59 PM EDT Hospital Encounter [facility] [address] [place] [phone] Iron deficiency anemia due to chronic blood loss (Primary Dx) Discharge Disposition: Home or Self Care 07/11/2025 Lab Requisition [facility] [address] [facility] [place] [phone] Davie Howard MD Encounter for gynecological examination (general) (routine) without abnormal findings 07/10/2025 Lab Requisition [facility] [address] [facility] [place] [phone] Davie Howard MD Encounter for screening for infections with a predominantly sexual mode of transmission; Acute vaginitis 07/02/2025 3:15 PM EDT Office Visit [facility] Hematology Oncology [address] [place] [phone] Kin Staton MD Microcytic anemia (Primary Dx); Iron deficiency anemia 06/25/2025 5:55 PM EDT - 06/25/2025 9:43 PM EDT Emergency [facility] Emergency [address] [place] [phone] Cole Hyatt MD Depression, unspecified depression type (Primary Dx); Anxiety Discharge Disposition: Home or Self Care 06/22/2025 Telephone [facility] Hematology Oncology [address] [place] [phone] Trish Fierro NP from Last 3 Months Surgical History Surgery Date Site/Laterality Comments SECTION PROCEDURE: HISTORICAL CERVICAL BIOPSY W/ LOOP ELEC TRODE EXCISION PROCEDURE: DE CONIZATION CERVIX W/WO D&C RPR ELTRD EXC SALPINGOOPHORECTOMY Bilateral PROCEDURE: DE LAPAROSCOPY W/RMVL ADNEXAL STRUCTURES; COMMENT: Salpingectomy only [...] or Lozada 07/17/2025 1: 44 PM EDT Obstetrics History Last Filed Vital Signs Vital Sign Reading Time Taken Comments Blood Pressure 117/74 07/20/2025 2:24 PM EDT Pulse 69 07/20/2025 2:24 PM EDT Temperature 36.3 C (97.4 F) 07/20/2025 2:24 PM EDT Respiratory Rate 16 07/20/2025 2:24 PM EDT Oxygen Saturation 100% 07/20/2025 2:24 PM EDT Inhaled Oxygen Concentration - - Weight 73.1 kg (161 lb 3.2 oz) 07/11/2025 1:18 P M EDT Height 165.1 cm (5' 5 ) 07/02/2025 3:20 PM EDT Body Mass Index 26.83 07/02/2025 3:20 PM EDT Plan of Treatment Upcoming Encounters Date Type Department Care Team (Late st Contact Info) Description 09/10/2025 11:15 AM EST Office Visit [facility] Hematology Oncology [address] [place] [phone] Kin Staton MD [address] [place] [phone] Health Maintenance Due Date Last Done Comments Breast Cancer Screening 1983 Hepatitis B Vaccines (1 of 3 - 19+ 3-dose series) 2002 HPV Vaccines (1 - 3-dose SCD M series) 2010 DTaP,Tdap,and Td Vaccines (2 - Td or Tdap) 07/20/2022 07/20/2012 HIV Screening 09/12/2022 Hepatitis C Screening 09/12/2022 Social Influencers of Health Screening 09/12/2022 Depression Screening 10/11/2024 COVID-19 Vaccine (1 - 2023-2 5 season) 2025 Influenza Vaccine (#1) 2025 Cervical Cancer Screening: HPV 07/10/2030 07/10/2025 RSV Immunization Adult Patie nts (1 - 1-dose 75+ series) 2058 HIB [...] age to complete this topic Pneumococcal Vaccine: Pediat rics (0 to 5 Years) and At-Risk Patients (6 to 49 Years) Aged Out No longer eligi ble based on patient's age to complete this topic RSV Immunization Patients Un katherin 20 months Aged Out No longer eligible b ased on patient's age to complete this topic Varicella Vaccines Aged Out No longer eligible based on patient's age to complete this topic Procedures Procedure Name Priority Date/Time Associated Diagnosis Comments PAP SMEAR Routine 07/10/2025 12:00 AM EDT Encounter for gynecological examination (general) (routine) without abnormal findings HPV WITH REFLEX GENOTYPE Routine 07/10/2025 12:00 AM EDT Encounter for gynecological examination (general) (routine) without abnormal findings VAGINITIS PATHOGENS BY PCR Routine 07/10/2025 12:00 AM EDT Encounter for screening for infections with a predominantly sexual mode of transmission Acute vaginitis CHLAMYDIA TRACHOMATIS AND NEISSERIA GONORRHOEAE PCR Routine 07/10/2025 12:00 AM EDT Encounter for screening for infections with a predominantly sexual mode of transmission Acute vaginitis CBC WITH AUTO DIFFERENTIAL Routine 07/02/2025 3:50 [...] 1:23 PM EDT Iron deficiency anemia, unspecified from Last 3 Months Results * HPV with reflex genotype (07/10/2025 12:00 AM EDT) Pathologist [facility] HPV Negative Negative LAB MICROBIOLOGY METHOD 07/12/2025 6:17 AM EDT [facility] Brushing/Spatula Cervix uteri structure / Unknown 07/10/2025 07/11/2025 8:04 AM EDT Davie Howard MD LAB MOLECULAR DIAGNOSTICS ORDE RABLES Final Result [facility] [address] [place] [address], [place] [phone] * (ABNORMAL) Vaginitis pathogens molecular study (07/10/2025 12:00 AM EDT) [facility] Trichomonas vaginalis Negative Negative 07/11/2025 2:00 PM EDT [facility] Gardnerella vaginalis Positive(A) Negative 07/11/2025 2:00 PM EDT [facility] Sarah Species Negative Negative 2:00 PM EDT [facility] Swab Vaginal structure / Unknown 07/10/2025 07/10/2025 12:48 PM EDT us Davie Howard MD LAB MICROBIOLOGY - GENERAL ORD ERABLES Final Result [facility] [address] [place] [address], [place] [phone] * Chlamydia trachomatis and Neisseria gonorrhoeae molecular study (07/10/2025 12:00 AM EDT) Pathologist [facility] Neisseria gonorrhoeae PCR Negative Negative LAB MOLECULAR DIAGNOSTICS METHOD 07/10/2025 3:34 PM EDT [facility] Chlamydia trachomatis PCR Negative Negative LAB MOLECULAR DIAGNOSTICS METHOD 07/10/2025 3:34 PM EDT [facility] Swab Cervix uteri structure / Unknown 07/10/2025 07/10/2025 12:48 PM EDT us Davie Howard MD LAB MICROBIOLOGY - GENERAL ORD ERABLES Final Result [facility] [address] [place] [address], * Pap smear (07/10/2025 12:00 AM EDT) Interpretation Negative for intraepithelial lesion or malignancy 07/19/2025 4:29 PM EDT [facility] at 1629 EDT General Categorization Negative 07/19/2025 4:29 PM EDT [facility] Other Findings Shift in elisa suggestive of bacterial vaginosis 07/19/2025 4:29 PM EDT [facility] LMP 07/04/2025 07/19/2025 4:29 PM EDT [facility] Specimen Adequacy Satisfactory for evaluation, endocervical/ladd sformation zone component absent 07/19/2025 4:29 PM EDT [facility] Pap Methodology Liquid Based Pap Test 07/19/2025 4:29 PM EDT [facility] Disclaimer The Pap test is a screening test which carries an inherent false negative rate. These test results should be correlated with the patient's clinical findings and history. This Pap test was processed using an automated screening system. Technical cytopathology services provided by [facility], at [address] [place] [id number] (CLIA # [id number]/Sam Stanton MD, Nuclear Worker Technician.) 07/19/2025 4:29 PM T [facility] Console Pap Interpretation Reported 07/19/2025 4:29 PM EDT [facility] Brushing/Spatula Cervix uteri structure / Unknown 07/10/2025 07/11/2025 8:04 AM EDT Davie Howard MD LAB CYTOLOGY ORDERABLES Final Result Performing Organization Address [facility]/ZIP Co de Phone Number [facility] [address] [place] [address], [place] [phone] * (ABNORMAL) Vitamin B12 and folate (07/02/2025 3:50 PM EDT) [facility] Vitamin B-12 1,710(H) 250 - 900 pcg/mL LAB CHEMISTRY METHOD 07/02/2025 5:39 PM EDT [facility] Folate 13.7 2.8 - 17.0 ng/ml LAB CHEMISTRY METHOD 07/02/2025 5:39 PM EDT [facility] Blood Venous blood specimen / Unknown Venipuncture / Unknown 07/02/2025 3:50 PM EDT 07/02/2025 4:31 PM EDT Kin Staton MD LAB BLOOD ORDERABLES Final R esult Performing Organization Address City/[facility] Co de Phone Number [facility] [address] [place] [address], [place] [phone] * (ABNORMAL) CBC auto differential (07/02/2025 3:50 PM EDT) Only the most recent of2 resultswithin the time period is included. [facility] WBC 5.9 4.8 - 10.8 K/[facility] LAB HEMETOLOGY METHOD 07/02/2025 4:43 PM EDT [facility] RBC 4.60 3.80 - 4.80 M/mcL LAB HEMETOLOGY METHOD 07/02/2025 4:43 PM EDT [facility] Hemoglobin 8.1(L) 11.5 - 16.0 g/dL LAB HEMETOLOGY METHOD 07/02/2025 4:[facility] Hematocrit 28.1(L) 35.0 - 47.0 % LAB HEMETOLOGY METHOD 07/02/2025 4:43 PM [facility] MCV 61.2(L) 79.0 - 98.0 FL LAB HEMETOLOGY METHOD 07/02/2025 4:43 [facility] MCH 17.6(L) 27.0 - 32.0 pcg LAB HEMETOLOGY METHOD 07/02/2025 4:43 PM [facility] MCHC 28.8(L) 32.0 - 37.0 g/dL LAB HEMETOLOGY METHOD 07/02/2025 4:43 PM [facility] RDW 20.0(H) 11.0 - 15.0 % LAB HEMETOLOGY METHOD 07/02/2025 4:43 PM [facility] Platelets 550(H) 130 - 400 K/mcL LAB HEMETOLOGY METHOD 07/02/2025 4:43 PM [facility] MPV 10.0 7.0 - 11.0 FL LAB HEMETOLOGY METHOD 07/02/2025 4:43 PM [facility] NRBC 0.0 <1.0 % LAB HEMETOLOGY METHOD 07/02/2025 4:43 PM [facility] NRBC Absolute 0.00 <0.10 K/mcL LAB HEMETOLOGY METHOD 07/02/2025 4:43 PM [facility] Neutrophils Relative 63.4 % LAB HEMETOLOGY METHOD 07/02/2025 4:43 PM [facility] Lymphocytes Relative 23.1 % LAB HEMETOLOGY METHOD 07/02/2025 4:43 PM [facility] Monocytes Relative 8.6 % LAB HEMETOLOGY METHOD 07/02/2025 4:43 PM EDT [facility] Eosinophils Relative 4.1 % LAB HEMETOLOGY METHOD 07/02/2025 4:43 PM EDT [facility] Basophils Relative 0.5 % LAB HEMETOLOGY METHOD 07/02/2025 4:43 PM EDT [facility] Immature Granulocytes Relative 0.3 % LAB HEMETOLOGY METHOD 07/02/2025 4:43 PM EDT [facility] Neutrophils Absolute 3.74 1.50 - 7.00 K/mcL LAB HEMETOLOGY METHOD 07/02/2025 4:43 PM EDT [facility] Lymphocytes Absolute 1.36 1.00 - 5.00 K/mcL LAB HEMETOLOGY METHOD 07/02/2025 4:43 PM EDT [facility] Monocytes Absolute 0.51 0.20 - 1.00 K/mcL LAB HEMETOLOGY METHOD 07/02/2025 4:43 PM EDT [facility] Eosinophils Absolute 0.24 0.00 - 0.50 K/mcL LAB HEMETOLOGY METHOD 07/02/2025 4:43 PM EDT [facility] Basophils Absolute 0.03 0.00 - 0.20 K/mcL LAB HEMETOLOGY METHOD 07/02/2025 4:43 PM EDT [facility] Immature Granulocytes Absolute 0.02 0.00 - 0.03 K/mcL LAB HEMETOLOGY METHOD 07/02/2025 4:43 PM EDT [facility] Blood Venous blood specimen / Unknown Venipuncture / Unknown 07/02/2025 3:50 PM EDT 07/02/2025 4:31 PM EDT us Kin Staton MD LAB BLOOD ORDERABLES Final R esult [facility] [address] [place] [address], * (ABNORMAL) Hemoglobin electrophoresis (07/02/2025 3:50 PM EDT) Pathologist [facility] Hemoglobin A1 98.9(H) 96.5 - 97.8 % 07/05/2025 11:44 AM EDT [facility] Hemoglobin A2 1.1(L) 2.2 - 3.2 % 07/05/2025 11:44 AM EDT [facility] Hemoglobin F 0.0 <2.0 % 07/05/2025 11:44 AM EDT [facility] Hemoglobin S 0.0 0.0 % 07/05/2025 11:44 AM EDT [facility] Hemoglobin C 0.0 0.0 % 07/05/2025 11:44 AM EDT [facility] Interpretation See Below 07/05/2025 11:44 AM EDT [facility] Comment: No abnormal hemoglobin variants seen on hemoglobin electrophoresis. Hemoglobin A2 is decreased. Common causes include, but are not limited to, iron deficiency, alpha thalassemia, and delta thalassemia. Test performed at [facility], [address], [place] [address] Abigail Perez MD, PhD - Nuclear Worker Technician Blood Venous blood specimen / Unknown Venipuncture / Unknown 07/02/2025 3:50 PM EDT 07/02/2025 4:31 PM EDT Kin Staton MD LAB BLOOD ORDERABLES Final R esult [facility] [address] [place] [address] * (ABNORMAL) Iron and TIBC (07/02/2025 3:50 PM EDT) [facility] Iron 10(L) 40 - 150 mcg/dL LAB CHEMISTRY METHOD 07/02/2025 5:39 PM EDT [facility] TIBC 463(H) 250 - 450 mcg/dL LAB CHEMISTRY METHOD 07/02/2025 5:39 PM EDT [facility] Iron Saturation 2(L) 15 - 50 % LAB CHEMISTRY METHOD 07/02/2025 5:39 PM EDT [facility] Blood Venous blood specimen / Unknown Venipuncture / Unknown 07/02/2025 3:50 PM EDT 07/02/2025 4:31 PM EDT Kin Staton MD LAB BLOOD ORDERABLES Final R esult Performing Organization Address City/[facility]/ZIP Co de Phone Number [facility] [address] [place] [address], [place] [phone] * (ABNORMAL) Ferritin (07/02/2025 3:50 PM EDT) Pathologist [facility] Ferritin 3(L) 8 - 252 ng/mL LAB CHEMISTRY METHOD 07/02/2025 5:55 PM EDT [facility] Comment:Results verified by repeat testing Blood Venous blood specimen / Unknown Venipuncture / Unknown 07/02/2025 3:50 PM EDT 07/02/2025 4:31 PM EDT Kin Staton MD LAB BLOOD ORDERABLES Final R esult Performing Organization Address [facility] Co de Phone Number [facility] [address] [place] [address], [place] [phone] * ECG-Annotated (06/26/2025) Provider Onbase ECG ORDERABLES Final Result * POC , urine manually resulted (06/25/2025 6:49 PM EDT) HCG, Ur POC Negative Negative POC hCG Int QC Pass? Yes Yes EXPIRATION DATE POC 12/19/2026 LOT NUMBER POC [id number] Urine Urine specimen obtained by clean catch procedure / Unknown 06/25/2025 6:49 PM EDT Cole Hyatt MD POINT OF CARE TEST ENTER/EDIT OR DERABLES Final Result * Drug abuse screen 8a panel, urine (06/25/2025 6:44 PM EDT) Amphetamine Screen, Ur Negative Negative LAB CHEMISTRY METHOD 06/25/2025 7:40 PM EDT [facility] Comment:Certain OTC medicati ons containing ephedrine, phenylephrine, pseudoephedrine and phenylpropanolamine can cause false positive results. Barbiturate Screen, Ur Negative Negative LAB CHEMISTRY METHOD 06/25/2025 7:40 PM EDT [facility] Benzodiazepine Screen, Ur Negative Negative LAB CHEMISTRY METHOD 06/25/2025 7:40 PM EDT [facility] Cocaine Screen, Ur Negative Negative LAB CHEMISTRY METHOD 06/25/2025 7:40 PM EDT [facility] Opiate Screen, Ur Negative Negative LAB CHEMISTRY METHOD 06/25/2025 7:40 PM EDT [facility] Cannabinoid (THC) Screen, Ur Negative Negative LAB CHEMISTRY METHOD 06/25/2025 7:40 PM EDT [facility] Comment:Specimens from patie nts taking pantoprazole sodium (Protonix) have been shown to produce false positive results. Oxycodone Screen, Ur Negative Negative LAB CHEMISTRY METHOD 06/25/2025 7:40 PM EDT [facility] Fentanyl, Ur Negative Negative LAB CHEMISTRY METHOD 06/25/2025 7:40 PM EDT [facility] Urine Urine specimen obtained by clean catch procedure / Unknown Non-blood Collection / Unknown 06/25/2025 6:44 PM EDT 06/25/2025 6:58 PM EDT Narrative [facility] - 06/25/2025 7:40 PM EDT Assay cutoffs: Amphetamines 1000 ng/mL Barbiturates 200 ng/mL Benzodiazepines 200 ng/mL Cocaine 300 ng/mL Fentanyl 1 ng/mL Opiates 300 ng/mL Oxycodone 100 ng/mL THC 50 ng/mL Semi-quantitative assay for screening purposes only. Unconfirmed screening result should not be used for non-medical purposes. *ALTERNATE METHOD CONFIRMATION DONE UPON REQUEST ONLY* Cole Hyatt MD LAB URINE ORDERABLES Final Resul t Performing Organization Address [facility] de Phone Number [facility] [address] [place] [address], * Buprenorphine screen, urine (06/25/2025 6:44 PM EDT) Buprenorphine Screen Urine Negative Negative LAB CHEMISTRY METHOD 06/25/2025 7:40 PM EDT [facility] Urine Urine specimen obtained by clean catch procedure / Unknown Non-blood Collection / Unknown 06/25/2025 6:44 PM EDT 06/25/2025 6:58 PM EDT Narrative [facility] - 06/25/2025 7:40 PM EDT Assay cutoff 5 ng/mL Semi-quantitative assay for screening purposes only. Unconfirmed screening result should not be used for non-medical purposes. *ALTERNATE METHOD CONFIRMATION DONE UPON REQUEST ONLY* Cole Hyatt MD LAB URINE ORDERABLES Final Resul t Performing Organization Address [facility] de Phone Number [facility] [address] [place] [address], * Methadone, urine (06/25/2025 6:44 PM EDT) Methadone Screen, Urine Negative Negative LAB CHEMISTRY METHOD 06/25/2025 7:40 PM EDT [facility] Comment: Assay cutoff 300 ng/mL [...] ORDERABLES Final Resul t Performing Organization Address City/[facility]/ZIP Co de Phone Number [facility] [address] [place] [address], [place] [phone] * Phencyclidine, urine (06/25/2025 6:44 PM EDT) PCP Scrn, Ur Negative Negative LAB CHEMISTRY METHOD 06/25/2025 7:40 PM EDT [facility] Comment: Assay cutoff 25 ng/mL [...] ORDERABLES Final Resul t Performing Organization Address [facility]/ZIP Co de Phone Number [facility] [address] [place] [address], [place] [phone] * Thyroid stimulating hormone with reflex to free t4 and free t3 (06/25/2025 6:43 PM EDT) TSH 1.67 0.40 - 4.00 mcIU/mL LAB CHEMISTRY METHOD 06/25/2025 7:59 PM EDT [facility] Blood Venous blood specimen / Unknown Venipuncture / Unknown 06/25/2025 6:43 PM EDT 06/25/2025 6:58 PM EDT us Cole Hyatt MD LAB BLOOD ORDERABLES Final Resul t Performing Organization Address City/[facility]/ZIP Co de Phone Number [facility] [address] [place] [address], [place] [phone] * Ethanol (06/25/2025 6:43 PM EDT) Ethanol Level <3 0 - 10 mg/dL LAB CHEMISTRY METHOD 06/25/2025 7:31 PM EDT [facility] Blood Venous blood specimen / Unknown Venipuncture / Unknown 06/25/2025 6:43 PM EDT 06/25/2025 6:58 PM EDT us Cole Hyatt MD LAB BLOOD ORDERABLES Final Resul t Performing Organization Address [facility]/ZIP Co de Phone Number [facility] [address] [place] [address], [place] [phone] * (ABNORMAL) Acetaminophen level (06/25/2025 6:43 PM EDT) Acetaminophen Level <2.0(L) 10.0 - 30.0 mcg/mL LAB CHEMISTRY METHOD 06/25/2025 7:37 PM EDT [facility] Blood Venous blood specimen / Unknown Venipuncture / Unknown 06/25/2025 6:43 PM EDT 06/25/2025 6:58 PM EDT us Cole Hyatt MD LAB BLOOD ORDERABLES Final Resul t Performing Organization Address [facility]/ZIP Co de Phone Number [facility] [address] [place] [address], [place] [phone] * (ABNORMAL) Salicylate level (06/25/2025 6:43 PM EDT) Salicylate Level <1.7(L) 2.0 - 29.0 mg/dL LAB CHEMISTRY METHOD 06/25/2025 7:31 PM EDT [facility] Blood Venous blood specimen / Unknown Venipuncture / Unknown 06/25/2025 6:43 PM EDT 06/25/2025 6:58 PM EDT us Cole Hyatt MD LAB BLOOD ORDERABLES Final Resul t [facility] [address] [place] [address], * Comprehensive metabolic panel (06/25/2025 6:43 PM EDT) Sodium 137 133 - 145 mmol/L LAB CHEMISTRY METHOD 06/25/2025 7:[facility] Potassium 3.8 3.5 - 5.5 mmol/L LAB CHEMISTRY METHOD 06/25/2025 7:32 PM [facility] Chloride 105 96 - 110 mmol/L LAB CHEMISTRY METHOD 06/25/2025 7:32 PM [facility] CO2 25 21 - 32 mmol/L LAB CHEMISTRY METHOD 06/25/2025 7:32 PM [facility] Anion Gap 7 3 - 11 LAB CHEMISTRY METHOD 06/25/2025 7:32 PM [facility] Glucose 89 70 - 100 mg/dL LAB CHEMISTRY METHOD 06/25/2025 7:32 PM [facility] BUN 11 5 - 25 mg/dL LAB CHEMISTRY METHOD 06/25/2025 7:32 PM [facility] Creatinine 0.79 0.50 - 1.10 mg/dL LAB CHEMISTRY METHOD 06/25/2025 7:32 PM [facility] eGFR 97 >=60 mL/min/1. 73m2 LAB CHEMISTRY METHOD 06/25/2025 7:32 PM [facility] Comment:Calculation based on the Chronic Kidney Disease Epidemiology Collaboration (CKD-EPI) equation refit without adjustment for race. BUN/Creatinine Ratio 13.9 LAB CHEMISTRY METHOD 06/25/2025 7:32 PM [facility] Calcium 8.9 8.5 - 10.5 mg/dL LAB CHEMISTRY METHOD 06/25/2025 7:32 PM EDT [facility] AST (SGOT) 13 10 - 42 unit/L LAB CHEMISTRY METHOD 06/25/2025 7:32 PM EDT [facility] ALT (SGPT) 17 10 - 60 unit/L LAB CHEMISTRY METHOD 06/25/2025 7:32 PM EDT [facility] Alkaline Phosphatase 65 42 - 121 unit/L LAB CHEMISTRY METHOD 06/25/2025 7:32 PM EDT [facility] Total Protein 7.4 6.0 - 8.0 g/dL LAB CHEMISTRY METHOD 06/25/2025 7:32 PM EDT [facility] Albumin 3.8 3.2 - 5.0 g/dL LAB CHEMISTRY METHOD 06/25/2025 7:32 PM EDT [facility] Total Bilirubin 0.2 0.0 - 1.4 mg/dL LAB CHEMISTRY METHOD 06/25/2025 7:32 PM EDT [facility] Blood Venous blood specimen / Unknown Venipuncture / Unknown 06/25/2025 6:43 PM EDT 06/25/2025 6:58 PM EDT Cole Hyatt MD LAB BLOOD ORDERABLES Final Resul t [facility] [address] [place] [address], * ECG 12 lead (06/25/2025 5:30 PM EDT) Ventricular Rate ECG 94 BPM GEMUSE Atrial Rate 94 BPM GEMUSE P-R Interval 152 ms GEMUSE QRS Duration 72 ms GEMUSE Q-T Interval 358 ms GEMUSE QTc 447 ms GEMUSE P Wave [place] 73 degrees GEMUSE R [place] 82 degrees GEMUSE T [place] 21 degrees GEMUSE ECG Interpretation Normal sinus rhythm No previous ECGs available Confirmed by MOISES BASHIR ([id number]) on 06/26/2025 8:05:58 AM GEMUSE 06/25/2025 5:30 PM EDT 06/26/2025 8:05 AM EDT us Cole Hyatt MD ECG ORDERABLES Final Result Performing Organization Address [facility] Co de Phone Number [facility] * (ABNORMAL) Iron (06/22/2025 1:23 PM EDT) Iron 13(L) 40 - 150 mcg/dL LAB CHEMISTRY METHOD 06/22/2025 4:28 PM EDT [facility] Blood Venous blood specimen / Unknown Venipuncture / Unknown 06/22/2025 1:23 PM EDT 06/22/2025 3:45 PM EDT us Trish Fierro [employer] LAB BLOOD ORDERABLES Final Res ult Performing Organization Address [facility] Co de Phone Number [facility] [address] [place] [address], [place] [phone] from Last 3 Months Insurance [facility] Care Teams Log Truck Driver Relationship Specialty Start Date End Date Bimal Baker MD [address] [phone] PCP - General Internal Medicine 07/02/25
--- OUTSIDE RECORDS SUMMARY | 2025-08-03 14:58 | XMS_ITS | Patient Health Record ---
Author Organization [facility] [place] Address [address] [place] [address] Care Team Providers Care [employer] Player Name Role Phone Trish Fierro Unavailable [phone] Allergies No Known Allergies Reason For Referral Reason fell three weeks ago and fx her left arm. Did not get referred at that time. Still has original splint and some residual pain. Has appointment at [facility] tomorrow Diagnosis 1 Unspecified fracture of shaft of left ulna, initial encounter for closed fracture (S52.A) Referral Organization [facility] Referring Provider First Name Trish Referring Provider Last Name Sri Referred Provider Specialty Orthopedic S urgery Referral Priority Routine Reason patient wants to res ume iron infusions Diagnosis 1 Iron deficiency anem ia, unspecified (D50.9) Referral Organization [facility] Referring Provider First Name Trish Referring Provider [...] Status Risk Notes Problem Iron deficiency anemia ([id number]) Iron deficiency anemia, unspecified (D50.9) Active confirmed Vital Signs Heart Rate 79 /min 06/12/2025 Respiratory Rate 18 /min 06/12/2025 Blood pressure diastolic 80 mm Hg 06/12/2025 Weight-kg 70.76 kg 06/12/2025 Blood pressure systolic 120 mm Hg 06/12/2025 Weight 156 lbs 06/12/2025 Encounters Encounter Location Date Provider Diagnosis [facility] [place] [address] [place] [address] 06/12/2025 [facility] discharge follow-up Z09 and Weight loss counseling, encounter for Z71.3 Assessments Encounter Date Diagnosis (ICD Code) Assessment Notes Treatment Notes Treatment Clinical Notes Section Notes 06/12/2025 Weight loss counseling, encounter for (ICD-10 - Z71.3) patient seen in urgent care three weeks ago. Presents today for a referral to [facility] as she has a f/u appointlent tomorrow 06/12/2025 Hospital discharge follow-up (ICD-10 - Z09) patient seen in urgent care three weeks ago. Presents today for a referral to [facility] as she has a f/u appointlent tomorrow Plan Of Treatment No Information Insurance Providers Payer Name Payer Address Payer Phone Subscriber Number Group Number Insured Name Patient Relationship to Insured Coverage Start Date Coverage End Date Danilo [facility] [address] [address] [place] [address] [id number] TONY YADAV Self - patient is the insured
--- OUTSIDE RECORDS SUMMARY | 2025-08-03 14:58 | XMS_ITS | Encounter Summary ---
Author Organization [facility] [place] [address] Care Team Providers Care Game Author Name Role Phone Bimal Baker MD Primary Care Provider [phone] Encounter Details Date Type Department Care Team (Latest Contact Info) Description 07/10/2025 Lab Requisition [facility] - Main Lab [address] [place] [phone] Davie Howard MD [address] [phone] Encounter for screening for infections with a predominantly sexual mode of transmission; Acute vaginitis Social History Tobacco Use Types Packs/Day Years [...] Description 09/10/2025 11:15 AM EST Office Visit [facility] Hematology Oncology [address] [place] [address] Kin Staton MD [address] [place] [address] documented as of this encounter Procedures Procedure Name Priority Date/Time Associated Diagnosis Comments VAGINITIS PATHOGENS BY PCR Routine 07/10/2025 12:00 AM EDT Encounter for screening for infections with a predominantly sexual mode of transmission Acute vaginitis CHLAMYDIA TRACHOMATIS AND NEISSERIA GONORRHOEAE PCR Routine 07/10/2025 12:00 AM EDT Encounter for screening for infections with a predominantly sexual mode of transmission Acute vaginitis documented in this encounter Results * (ABNORMAL) Vaginitis pathogens molecular study (07/10/2025 12:00 AM EDT) Trichomonas vaginalis Negative Negative 07/11/2025 2:00 PM EDT [facility] Gardnerella vaginalis Positive(A) Negative 07/11/2025 2:00 PM EDT [facility] Sarah Species Negative Negative 2:00 PM EDT [facility] Swab Vaginal structure / Unknown 07/10/2025 07/10/2025 12:48 PM EDT us Davie Howard MD LAB MICROBIOLOGY - GENERAL ORD ERABLES Final Result [facility] [address] [place] [address], * Chlamydia trachomatis and Neisseria gonorrhoeae molecular study (07/10/2025 12:00 AM EDT) Neisseria gonorrhoeae PCR Negative Negative LAB MOLECULAR DIAGNOSTICS METHOD 07/10/2025 3:34 PM EDT [facility] Chlamydia trachomatis PCR Negative Negative LAB MOLECULAR DIAGNOSTICS METHOD 07/10/2025 3:34 PM EDT [facility] Swab Cervix uteri structure / Unknown 07/10/2025 07/10/2025 12:48 PM EDT us Davie Howard MD LAB MICROBIOLOGY - GENERAL ORD ERABLES Final Result [facility] [address] [place] [address], documented in this encounter Visit Diagnoses Diagnosis Encounter for screening for infections with a predominantly sexual mode of transmission Acute vaginitis Unspecified vaginitis and vulvovaginitis documented in this encounter Care Teams Game Author Relationship Specialty Start Date End Date Bimal Baker MD [address] [phone] PCP - General Internal Medicine 07/02/25 documented as of this encounter
== END 2025-08-03 12:59 | disposition home or self-care (01) ==
LOC: HO.HOSX 12:58
DX: S52.202D Unspecified fracture of shaft of left ulna, subsequent encounter for closed fracture with routine healing (principal); X58.XXXD Exposure to other specified factors, subsequent encounter
CPT/HCPCS: 73090

== ENCOUNTER 2025-08-03 14:09 | Outpatient (AMB) | payer BC, SELFPAY ==
[2025-08-03 14:23] VITALS: BMI 26.1
--- NOTE | 2025-08-03 14:23 | MHC.OFFVIS ---
Vital Signs 08/03/25 14:23 Height 5 ft 5 in Weight 157 lb BMI 26.1 Intake Visit Reasons: OV- LT ulnar fx DOI 05/15/25-w/xrays Intake Note: Genet is a 39 year old right hand dominant female who presents today for follow up status post Left Ulnar Shaft Fracture, DOI: 05/15/25. At her last visit she was changed into a short arm cast. She was advised to work on gentle pronation and supination in the short-arm cast. A 1-2 lb weight limit was reinforced. Patient reports today she is doing well. No questions or concerns at this time. Allergies No Known Allergies Allergy (Verified 08/03/25 14:25) HPI HPI OV- LT ulnar fx DOI 05/15/25-w/xrays: Details: Genet is a 39 year old right hand dominant female who presents today for follow up status post Left Ulnar Shaft Fracture, DOI: 05/15/25. At her last visit she was changed into a short arm cast. She was advised to work on gentle pronation and supination in the short-arm cast. A 1-2 lb weight limit was reinforced. Patient reports today she is doing well. No questions or concerns at this time. Patient does report that she was extremely iron deficient over the last 6 weeks, and recently had infusions, and she feels that this is health her arm to feel better significantly. 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 Neuro: Normal sensation of the tips of all digits of the left hand at this time Vascular: Cap refill brisk Pain: No tenderness to palpation about left forearm, particularly over the ulnar shaft of the fracture ROM: Patient is able to make a closed fist and extend all digits of the left hand fully Range of motion of the left wrist slightly impaired Skin: No lacerations or abrasions. General: No ecchymosis, erythema, or evidence of infection. Psych: Appears grossly normal Affect normal Attitude cooperative Results Reviewed Results Reviewed: X-rays obtained in the office today and independently reviewed by me, Clayton Duff PA-C, demonstrate minimally displaced fracture of the left ulnar shaft with minimal evidence of interval bony healing. Assessment & Plan Assessment & Plan (1) Fracture of left ulna, shaft: Code(s): S52.A - Unspecified fracture of shaft of left ulna, initial encounter for closed fracture Category: Medical Plan 1. Fracture of the left ulnar shaft Date of injury 05/15/2025 Patient appears to be recovering fairly well from her fracture Patient is educated about the typical recovery course At this time, patient is placed into a short-arm splint Due to lack of ongoing healing on x-ray, I feel it is best for the patient to be evaluated by Dr. Fleming for potential further need for intervention Patient will work on gentle pronation and supination in the short-arm cast to prevent stiffness as well as healing of the ulna that could fused to the radius if pronation and supination and not resumed Patient is educated on proper cast care and precautions 1-2 lb weight limit reinforced in the left hand Patient understands this and is amenable to this plan Follow-up next week with Dr. Fleming with any acute concerns Orders: Orders XR forearm LT 2V Today S52.209A - Unspecified fracture of shaft of unspecified ulna, initial encounter for closed fracture, S52.90XA - Unspecified fracture of unspecified forearm, initial encounter for closed fracture Coding Level of Care Code Global (17990) Diagnoses Fracture of left ulna, shaft S52.A
== END 2025-08-03 15:42 | disposition home or self-care (01) ==
LOC: HO.HOS 14:09
DX: S52.202A Unspecified fracture of shaft of left ulna, initial encounter for closed fracture (principal)
CPT/HCPCS: 99024

== ENCOUNTER → 2025-08-03 14:11 | Outpatient (BNV) | payer BC, SELFPAY | PROVIDERS: Visit Provider Radiology Diagnostic Radiology | DX: S52.90XA Unspecified fracture of unspecified forearm, initial encounter for closed fracture (principal) | CPT/HCPCS: 73090 ==

== ENCOUNTER 2025-08-07 13:26 | Outpatient (AMB) | payer BC, SELFPAY ==
[2025-08-07 13:30] VITALS: BMI 26.1
--- NOTE | 2025-08-07 13:30 | MHC.OFFVIS ---
Vital Signs 08/07/25 13:30 Height 5 ft 5 in Weight 157 lb BMI 26.1 Intake Visit Reasons: OV: fracture of left ulna, shaft DOI 05/15/25 Intake Note: Genet is a 39 year old right hand dominant female who presents today for follow up status post Left Ulnar Shaft Fracture, DOI: 05/15/25. At her last visit with Beverley Arnold, she was placed into a short-arm splint and advised to work on gentle pronation and supination to prevent stiffness. 1-2 lb weight limit reinforced. As per Beverley Arnold, due to lack of ongoing healing on x-ray, it is best for the patient to be evaluated by Dr. Fleming for potential further need for intervention. Patient states she has been wearing the splint and has had no pain. Denies numbness or tingling in fingers. Allergies No Known Allergies Allergy (Verified 08/07/25 13:36) HPI HPI OV: fracture of left ulna, shaft DOI 05/15/25: Details: Genet is a 39 year old right hand dominant woman who returns for a left ulnar shaft fracture, S/P fall down some stairs, DOI: 05/15/25. This has been managed by Clayton non-operatively in a cast. She says she is doing well, with no pain, numbness, or tingling. She has been wearing her splint as instructed. She says she is Anemic, and received an iron infusion on 07/20/25 for hemoglobin of 6. She says this is from heavy menstrual period. She says prior to her infusion she had pain at her fracture site, but her pain resolved soon after she had her infusion. 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[employer] Review of Systems Const All systems reviewed & are unremarkable except as noted in HPI and below Physical Exam Vital Signs: BMI result Body Mass Index 26.1 Const General: cooperative, healthy appearing and no acute distress Orientation/consciousness: patient oriented x3 HEENT Head: Yes normocephalic and Yes atraumatic Eyes EOM: EOMs intact bilaterally Resp Effort & Inspection: normal respiratory effort and able to speak in complete sentences Cardio Jugular venous distension: no JVD Skin General skin exam: turgor normal Rashes: no rashes Neuro General: patient oriented x3 Extrem Other: Evaluation of Left Upper Extremity: The patient is alert, oriented, and in no acute distress sensation is normal to the tips of all digits Cap refill brisk ROM: She can make a tight fist with good strength and no pain, and extend all her digits She was able to bring her wrist from roughly 70 degrees pronation to 60 degrees of supination without difficulty and no pain. She says she has been working on prono-supination. Her fracture site in roughly the mid shaft of the ulna is palpable. It is completely nontender even to firm palpation. It is nontender to axial loading. Radiographs: 3 views of the left wrist were taken and viewed by me today in clinic. They show an ulnar shaft fracture with delayed union. I do see evidence of partial bone healing. Clearly we would like to see more bone healing across the center of the fracture. Psych Appearance: grossly normal Affect: normal affect Attitude: cooperative Assessment & Plan Assessment & Plan (1) Delayed union of closed fracture of shaft of left ulna: Code(s): S52.202G - Unspecified fracture of shaft of left ulna, subsequent encounter for closed fracture with delayed healing Category: Medical Plan Assessment & Plan: 1. Left ulnar shaft fracture, delayed union From a fall, DOI: 05/15/25 This has been managed non-operatively in a cast I educated her about this condition and reviewed her radiographs with her She continues to have slow bony healing of her fracture In an effort to try to promote bone healing: - I recommend & ordered the use of a bone stimulator to try and improve her fracture healing. She may be at risk of re-injury requiring surgery if she falls or has any impact in her wrist at this point. - I ordered OT to have a custom forearm splint made for her, to be worn like a cast except for showering and working on gentle wrist range of motion for the next 5 weeks - I recommend that she speak with her PCP concerning bloodwork including vitamin-D and calcium levels and possibly other metabolic studies to rule out these conditions as contributing factors in her lack of bony healing.?She has a Hx of Iron-deficiency anemia and has received Iron infusions in the past, her most recent on 07/20/25. She also says she takes Vitamin-D daily. I discussed activity modifications, she is to lift nothing heavier than a cellphone for the next 5 weeks. I would like her to start using her hand for these buggy loader weight activities. They should also avoid any heavy impact activities, falls, or sports activities for the next 5 weeks. At this point I am optimistic that we can avoid operative intervention. She will follow up in 5 weeks, with X-rays, 3V L wrist, OOP. Depending on her rate of bony healing, we may consider a CT scan. Scribed for Elma Fleming MD by Pablo Delgado, medical front desk coordinator, on 08/07/25 at 1:40 PM, EST. Orders: Orders OT Evaluation and Treatment Today S5.A - Unspecified fracture of shaft of left ulna, initial encounter for closed fracture, S5.G - Unspecified fracture of shaft of left ulna, subsequent encounter for closed fracture with delayed healing Coding Level of Care Code Est Pt Level 4 (82278) Diagnoses Delayed union of closed fracture of shaft of left ulna S5
--- OUTSIDE RECORDS SUMMARY | 2025-08-07 17:19 | XMS_ITS | Clinical Summary ---
Author Organization [facility] Address [address] [place] [address] Phone Care Team Providers Care Biomedical Engineering Professor Name Role Phone Bimal Baker MD Primary Care Provider [phone] Allergies No known active allergies Medications No known medications Active Problems Problem Noted Date Diagnosed Date Iron deficiency anemia due to chronic blood loss 07/02/2025 Encounters Date Type Department Care Team Description 07/20/2025 2:00 PM EDT - 07/20/2025 11:59 PM EDT Hospital Encounter [address] [phone] Iron deficiency anemia due to chronic blood loss (Primary Dx) Discharge Disposition: Home or Self Care 07/17/2025 1:44 PM EDT - 07/17/2025 11:59 PM EDT Hospital Encounter [facility] [address] [place] [phone] Iron deficiency anemia due to chronic blood loss (Primary Dx) Discharge Disposition: Home or Self Care 07/11/2025 1:00 PM EDT - 07/11/2025 11:59 PM EDT Hospital Encounter [facility] [address] [place] [phone] Iron deficiency anemia due to chronic blood loss (Primary Dx) Discharge Disposition: Home or Self Care 07/11/2025 Lab Requisition [facility] Main Lab [address] [facility] [place] [phone] Davie Howard MD Encounter for gynecological examination (general) (routine) without abnormal findings 07/10/2025 Lab Requisition [facility] Lab [address] [facility] [place] [phone] Davie Howard MD Encounter for screening for infections with a predominantly sexual mode of transmission; Acute vaginitis 07/02/2025 3:15 PM EDT Office Visit [facility] Hematology Oncology [address] [place] [phone] Kin Staton MD Microcytic anemia (Primary Dx); Iron deficiency anemia 06/25/2025 5:55 PM EDT - 06/25/2025 9:[address] [facility] Emergency [address] [place] [phone] Cole Hyatt MD Depression, unspecified depression type (Primary Dx); Anxiety Discharge Disposition: Home or Self Care 06/22/[address] [facility] Hematology Oncology [address] [place] [phone] Trish Fierro NP from Last 3 Months Surgical History Surgery Date Site/Laterality Comments SECTION PROCEDURE: HISTORICAL CERVICAL BIOPSY W/ LOOP ELEC TRODE EXCISION PROCEDURE: AL CONIZATION CERVIX W/WO D&C RPR ELTRD EXC SALPINGOOPHORECTOMY Bilateral PROCEDURE: AL LAPAROSCOPY W/RMVL ADNEXAL STRUCTURES; COMMENT: Salpingectomy only [...] Description 09/10/2025 11:15 AM EST Office Visit [facility] Hematology Oncology [address] [place] [phone] Kin Staton MD [address] [place] [address] Health Maintenance Due Date Last Done Comments [...] reflex genotype (07/10/2025 12:00 AM EDT) Pathologist [facility] HPV Negative Negative LAB MICROBIOLOGY METHOD 07/12/2025 6:17 AM EDT [facility] Brushing/Spatula Cervix uteri structure / Unknown 07/10/2025 07/11/2025 8:04 AM EDT Davie Howard MD LAB MOLECULAR DIAGNOSTICS ORDE RABLES Final Result [facility] [address] [place] [address], [place] [phone] * (ABNORMAL) Vaginitis pathogens molecular study (07/10/2025 12:00 AM EDT) [facility] Trichomonas vaginalis Negative Negative 07/11/2025 2:00 PM EDT [facility] Gardnerella vaginalis Positive(A) Negative 07/11/2025 2:00 PM EDT [facility] Sarah Species Negative Negative 2:00 PM EDT [facility] Swab Vaginal structure / Unknown 07/10/2025 07/10/2025 12:48 PM EDT us Davie Howard MD LAB MICROBIOLOGY - GENERAL ORD ERABLES Final Result [facility] [address] [place] [address], [place] [phone] * Chlamydia trachomatis and Neisseria gonorrhoeae molecular study (07/10/2025 12:00 AM EDT) Pathologist [facility] Neisseria gonorrhoeae PCR Negative Negative LAB MOLECULAR DIAGNOSTICS METHOD 07/10/2025 3:34 PM EDT [facility] Chlamydia trachomatis PCR Negative Negative LAB MOLECULAR DIAGNOSTICS METHOD 07/10/2025 3:34 PM EDT [facility] Swab Cervix uteri structure / Unknown 07/10/2025 07/10/2025 12:48 PM EDT us Davie Howard MD LAB MICROBIOLOGY - GENERAL ORD ERABLES Final Result [facility] [address] [place] [address], * Pap smear (07/10/2025 12:00 AM EDT) Interpretation Negative for intraepithelial lesion or malignancy 07/19/2025 4:29 PM EDT [facility] at 1629 EDT General Categorization Negative 07/19/2025 4:29 PM EDT [facility] Other Findings Shift in elisa suggestive of bacterial vaginosis 07/19/2025 4:29 PM EDT [facility] LMP 07/04/2025 07/19/2025 4:29 PM EDT [facility] Specimen Adequacy Satisfactory for evaluation, endocervical/ladd sformation zone component absent 07/19/2025 4:29 PM EDT [facility] Pap Methodology Liquid Based Pap Test 07/19/2025 4:29 PM EDT [facility] Disclaimer The Pap test is a screening test which carries an inherent false negative rate. These test results should be correlated with the patient's clinical findings and history. This Pap test was processed using an automated screening system. Technical cytopathology services provided by [facility], at [address] [place] [id number] (CLIA # [id number]/Sam Stanton MD, Wan Support Specialist.) 07/19/2025 4:29 PM T [facility] Console Pap Interpretation Reported 07/19/2025 4:29 PM EDT [facility] Brushing/Spatula Cervix uteri structure / Unknown 07/10/2025 07/11/2025 8:04 AM EDT Davie Howard MD LAB CYTOLOGY ORDERABLES Final Result Performing Organization Address [facility]/ZIP Co de Phone Number [facility] [address] [place] [address], [place] [phone] * (ABNORMAL) Vitamin B12 and folate (07/02/2025 3:50 PM EDT) [facility] Vitamin B-12 1,710(H) 250 - 900 pcg/mL LAB CHEMISTRY METHOD 07/02/2025 5:39 PM EDT [facility] Folate 13.7 2.8 - 17.0 ng/ml LAB CHEMISTRY METHOD 07/02/2025 5:39 PM EDT [facility] Blood Venous blood specimen / Unknown Venipuncture / Unknown 07/02/2025 3:50 PM EDT 07/02/2025 4:31 PM EDT Kin Staton MD LAB BLOOD ORDERABLES Final R esult Performing Organization Address City/[facility] [address]/[facility] Co de Phone Number [facility] [address] [place] [address], [place] [phone] * (ABNORMAL) CBC auto differential (07/02/2025 3:50 PM EDT) Only the most recent of2 resultswithin the time period is included. [facility] WBC 5.9 4.8 - 10.8 K/[facility] LAB HEMETOLOGY METHOD 07/02/2025 4:43 PM EDT [facility] RBC 4.60 3.80 - 4.80 M/mcL LAB HEMETOLOGY METHOD 07/02/2025 4:43 PM EDT [facility] Hemoglobin 8.1(L) 11.5 - 16.0 g/dL LAB HEMETOLOGY METHOD 07/02/2025 4:[facility] Hematocrit 28.1(L) 35.0 - 47.0 % LAB HEMETOLOGY METHOD 07/02/2025 4:43 PM [facility] MCV 61.2(L) 79.0 - 98.0 FL LAB HEMETOLOGY METHOD 07/02/2025 4:43 PM [facility] MCH 17.6(L) 27.0 - 32.0 pcg LAB HEMETOLOGY METHOD 07/02/2025 4:43 PM [facility] MCHC 28.8(L) 32.0 - 37.0 g/dL LAB HEMETOLOGY METHOD 07/02/2025 4:43 PM [facility] RDW 20.0(H) 11.0 - 15.0 % LAB HEMETOLOGY METHOD 07/02/2025 4:43 PM [facility] Platelets 550(H) 130 - 400 K/mcL LAB HEMETOLOGY METHOD 07/02/2025 4:43 PM [facility] MPV 10.0 7.0 - 11.0 FL LAB HEMETOLOGY METHOD 07/02/2025 4:43 PM [facility] NRBC 0.0 <1.0 % LAB HEMETOLOGY METHOD 07/02/2025 4:43 PM [facility] NRBC Absolute 0.00 <0.10 K/mcL LAB HEMETOLOGY METHOD 07/02/2025 4:43 PM [facility] Neutrophils Relative 63.4 % LAB HEMETOLOGY METHOD 07/02/2025 4:43 PM [facility] Lymphocytes Relative 23.1 % LAB HEMETOLOGY METHOD 07/02/2025 4:43 PM [facility] Monocytes Relative 8.6 % LAB HEMETOLOGY METHOD 07/02/2025 4:43 PM EDT [facility] Eosinophils Relative 4.1 % LAB HEMETOLOGY METHOD 07/02/2025 4:43 PM EDT [facility] Basophils Relative 0.5 % LAB HEMETOLOGY METHOD 07/02/2025 4:43 PM EDT [facility] Immature Granulocytes Relative 0.3 % LAB HEMETOLOGY METHOD 07/02/2025 4:43 PM EDT [facility] Neutrophils Absolute 3.74 1.50 - 7.00 K/mcL LAB HEMETOLOGY METHOD 07/02/2025 4:43 PM EDT [facility] Lymphocytes Absolute 1.36 1.00 - 5.00 K/mcL LAB HEMETOLOGY METHOD 07/02/2025 4:43 PM EDT [facility] Monocytes Absolute 0.51 0.20 - 1.00 K/mcL LAB HEMETOLOGY METHOD 07/02/2025 4:43 PM EDT [facility] Eosinophils Absolute 0.24 0.00 - 0.50 K/mcL LAB HEMETOLOGY METHOD 07/02/2025 4:43 PM EDT [facility] Basophils Absolute 0.03 0.00 - 0.20 K/mcL LAB HEMETOLOGY METHOD 07/02/2025 4:43 PM EDT [facility] Immature Granulocytes Absolute 0.02 0.00 - 0.03 K/mcL LAB HEMETOLOGY METHOD 07/02/2025 4:43 PM EDT [facility] Blood Venous blood specimen / Unknown Venipuncture / Unknown 07/02/2025 3:50 PM EDT 07/02/2025 4:31 PM EDT us Kin Staton MD LAB BLOOD ORDERABLES Final R esult [facility] [address] [place] [address], * (ABNORMAL) Hemoglobin electrophoresis (07/02/2025 3:50 PM EDT) Pathologist [facility] Hemoglobin A1 98.9(H) 96.5 - 97.8 % [...] thalassemia, and delta thalassemia. Test performed at [facility], [address], [place] [address] Abigail Perez MD, PhD - Wan Support Specialist Blood Venous blood specimen / Unknown Venipuncture / Unknown 07/02/2025 3:50 PM EDT 07/02/2025 4:31 PM EDT Kin Staton MD LAB BLOOD ORDERABLES Final R esult [facility] [address] [place] [address] * (ABNORMAL) Iron and TIBC (07/02/2025 3:50 PM EDT) [facility] Iron 10(L) 40 - 150 mcg/dL LAB CHEMISTRY METHOD 07/02/2025 5:39 PM EDT [facility] TIBC 463(H) 250 - 450 mcg/dL LAB CHEMISTRY METHOD 07/02/2025 5:39 PM EDT [facility] Iron Saturation 2(L) 15 - 50 % LAB CHEMISTRY METHOD 07/02/2025 5:39 PM EDT [facility] Blood Venous blood specimen / Unknown Venipuncture / Unknown 07/02/2025 3:50 PM EDT 07/02/2025 4:31 PM EDT Kin Staton MD LAB BLOOD ORDERABLES Final R esult Performing Organization Address City/[facility]/ZIP Co de Phone Number [facility] [address] [place] [address], [place] [phone] * (ABNORMAL) Ferritin (07/02/2025 3:50 PM EDT) Pathologist [facility] Ferritin 3(L) 8 - 252 ng/mL LAB CHEMISTRY METHOD 07/02/2025 5:55 PM EDT [facility] Comment:Results verified by repeat testing Blood Venous blood specimen / Unknown Venipuncture / Unknown 07/02/2025 3:50 PM EDT 07/02/2025 4:31 PM EDT Kin Staton MD LAB BLOOD ORDERABLES Final R esult Performing Organization Address [facility] [address]/[facility] Co de Phone Number [facility] [address] [place] [address], [place] [phone] * ECG-Annotated (06/26/2025) Provider Onbase ECG ORDERABLES Final Result * POC , urine manually resulted (06/25/2025 6:49 PM EDT) HCG, Ur POC Negative Negative POC hCG Int QC Pass? Yes Yes EXPIRATION DATE POC 12/19/2026 LOT NUMBER POC [id number] Urine Urine specimen obtained by clean catch procedure / Unknown 06/25/2025 6:49 PM EDT Cole Hyatt MD POINT OF CARE TEST ENTER/EDIT OR DERABLES Final Result * Drug abuse screen 8a panel, urine (06/25/2025 6:44 PM EDT) Amphetamine Screen, Ur Negative Negative LAB CHEMISTRY METHOD 06/25/2025 7:40 PM EDT [facility] Comment:Certain OTC medicati ons containing ephedrine, phenylephrine, pseudoephedrine and phenylpropanolamine can cause false positive results. Barbiturate Screen, Ur Negative Negative LAB CHEMISTRY METHOD 06/25/2025 7:40 PM EDT [facility] Benzodiazepine Screen, Ur Negative Negative LAB CHEMISTRY METHOD 06/25/2025 7:40 PM EDT [facility] Cocaine Screen, Ur Negative Negative LAB CHEMISTRY METHOD 06/25/2025 7:40 PM EDT [facility] Opiate Screen, Ur Negative Negative LAB CHEMISTRY METHOD 06/25/2025 7:40 PM EDT [facility] Cannabinoid (THC) Screen, Ur Negative Negative LAB CHEMISTRY METHOD 06/25/2025 7:40 PM EDT [facility] Comment:Specimens from patie nts taking pantoprazole sodium (Protonix) have been shown to produce false positive results. Oxycodone Screen, Ur Negative Negative LAB CHEMISTRY METHOD 06/25/2025 7:40 PM EDT [facility] Fentanyl, Ur Negative Negative LAB CHEMISTRY METHOD 06/25/2025 7:40 PM EDT [facility] Urine Urine specimen obtained by clean catch procedure / Unknown Non-blood Collection / Unknown 06/25/2025 6:44 PM EDT 06/25/2025 6:58 PM EDT Narrative [facility] - 06/25/2025 7:40 PM EDT Assay [...] ORDERABLES Final Resul t Performing Organization Address [facility] de Phone Number [facility] [address] [place] [address], * Buprenorphine screen, urine (06/25/2025 6:44 PM EDT) Buprenorphine Screen Urine Negative Negative LAB CHEMISTRY METHOD 06/25/2025 7:40 PM EDT [facility] Urine Urine specimen obtained by clean catch procedure / Unknown Non-blood Collection / Unknown 06/25/2025 6:44 PM EDT 06/25/2025 6:58 PM EDT Narrative [facility] - 06/25/2025 7:40 PM EDT Assay cutoff 5 ng/mL Semi-quantitative assay for screening purposes only. Unconfirmed screening result should not be used for non-medical purposes. *ALTERNATE METHOD CONFIRMATION DONE UPON REQUEST ONLY* Cole Hyatt MD LAB URINE ORDERABLES Final Resul t Performing Organization Address [facility] de Phone Number [facility] [address] [place] [address], * Methadone, urine (06/25/2025 6:44 PM EDT) Methadone Screen, Urine Negative Negative LAB CHEMISTRY METHOD 06/25/2025 7:40 PM EDT [facility] Comment: Assay cutoff 300 ng/mL Semi-quantitative [...] ORDERABLES Final Resul t Performing Organization Address City/[facility]/ZIP Co de Phone Number [facility] [address] [place] [address], [place] [phone] * Phencyclidine, urine (06/25/2025 6:44 PM EDT) PCP Scrn, Ur Negative Negative LAB CHEMISTRY METHOD 06/25/2025 7:40 PM EDT [facility] Comment: Assay cutoff 25 ng/mL Semi-quantitative [...] ORDERABLES Final Resul t Performing Organization Address [facility] [address]/ZIP Co de Phone Number [facility] [address] [place] [address], [place] [phone] * Thyroid stimulating hormone with reflex to free t4 and free t3 (06/25/2025 6:43 PM EDT) TSH 1.67 0.40 - 4.00 mcIU/mL LAB CHEMISTRY METHOD 06/25/2025 7:59 PM EDT [facility] Blood Venous blood specimen / Unknown Venipuncture / Unknown 06/25/2025 6:43 PM EDT 06/25/2025 6:58 PM EDT us Cole Hyatt MD LAB BLOOD ORDERABLES Final Resul t Performing Organization Address City/[facility] [address]/ZIP Co de Phone Number [facility] [address] [place] [address], [place] [phone] * Ethanol (06/25/2025 6:43 PM EDT) Ethanol Level <3 0 - 10 mg/dL LAB CHEMISTRY METHOD 06/25/2025 7:31 PM EDT [facility] Blood Venous blood specimen / Unknown Venipuncture / Unknown 06/25/2025 6:43 PM EDT 06/25/2025 6:58 PM EDT us Cole Hyatt MD LAB BLOOD ORDERABLES Final Resul t Performing Organization Address [facility]/ZIP Co de Phone Number [facility] [address] [place] [address], [place] [phone] * (ABNORMAL) Acetaminophen level (06/25/2025 6:43 PM EDT) Acetaminophen Level <2.0(L) 10.0 - 30.0 mcg/mL LAB CHEMISTRY METHOD 06/25/2025 7:37 PM EDT [facility] Blood Venous blood specimen / Unknown Venipuncture / Unknown 06/25/2025 6:43 PM EDT 06/25/2025 6:58 PM EDT us Cole Hyatt MD LAB BLOOD ORDERABLES Final Resul t Performing Organization Address [facility] [address]/ZIP Co de Phone Number [facility] [address] [place] [address], [place] [phone] * (ABNORMAL) Salicylate level (06/25/2025 6:43 PM EDT) Salicylate Level <1.7(L) 2.0 - 29.0 mg/dL LAB CHEMISTRY METHOD 06/25/2025 7:31 PM EDT [facility] Blood Venous blood specimen / Unknown Venipuncture / Unknown 06/25/2025 6:43 PM EDT 06/25/2025 6:58 PM EDT us Cole Hyatt MD LAB BLOOD ORDERABLES Final Resul t [facility] [address] [place] [address], * Comprehensive metabolic panel (06/25/2025 6:43 PM EDT) Sodium 137 133 - 145 mmol/L LAB CHEMISTRY METHOD 06/25/2025 7:[facility] Potassium 3.8 3.5 - 5.5 mmol/L LAB CHEMISTRY METHOD 06/25/2025 7:32 PM [facility] Chloride 105 96 - 110 mmol/L LAB CHEMISTRY METHOD 06/25/2025 7:32 PM [facility] CO2 25 21 - 32 mmol/L LAB CHEMISTRY METHOD 06/25/2025 7:32 PM [facility] Anion Gap 7 3 - 11 LAB CHEMISTRY METHOD 06/25/2025 7:32 PM [facility] Glucose 89 70 - 100 mg/dL LAB CHEMISTRY METHOD 06/25/2025 7:32 PM [facility] BUN 11 5 - 25 mg/dL LAB CHEMISTRY METHOD 06/25/2025 7:32 PM [facility] Creatinine 0.79 0.50 - 1.10 mg/dL LAB CHEMISTRY METHOD 06/25/2025 7:32 PM [facility] eGFR 97 >=60 mL/min/1. 73m2 LAB CHEMISTRY METHOD 06/25/2025 7:32 PM [facility] Comment:Calculation based on the Chronic Kidney Disease Epidemiology Collaboration (CKD-EPI) equation refit without adjustment for race. BUN/Creatinine Ratio 13.9 LAB CHEMISTRY METHOD 06/25/2025 7:32 PM [facility] Calcium 8.9 8.5 - 10.5 mg/dL LAB CHEMISTRY METHOD 06/25/2025 7:32 PM EDT [facility] AST (SGOT) 13 10 - 42 unit/L LAB CHEMISTRY METHOD 06/25/2025 7:32 PM EDT [facility] ALT (SGPT) 17 10 - 60 unit/L LAB CHEMISTRY METHOD 06/25/2025 7:32 PM EDT [facility] Alkaline Phosphatase 65 42 - 121 unit/L LAB CHEMISTRY METHOD 06/25/2025 7:32 PM EDT [facility] Total Protein 7.4 6.0 - 8.0 g/dL LAB CHEMISTRY METHOD 06/25/2025 7:32 PM EDT [facility] Albumin 3.8 3.2 - 5.0 g/dL LAB CHEMISTRY METHOD 06/25/2025 7:32 PM EDT [facility] Total Bilirubin 0.2 0.0 - 1.4 mg/dL LAB CHEMISTRY METHOD 06/25/2025 7:32 PM EDT [facility] Blood Venous blood specimen / Unknown Venipuncture / Unknown 06/25/2025 6:43 PM EDT 06/25/2025 6:58 PM EDT Cole Hyatt MD LAB BLOOD ORDERABLES Final Resul t [facility] [address] [place] [address], * ECG 12 lead (06/25/2025 5:30 PM EDT) Ventricular Rate ECG 94 BPM GEMUSE Atrial Rate 94 BPM GEMUSE P-R Interval 152 ms GEMUSE QRS Duration 72 ms GEMUSE Q-T Interval 358 ms GEMUSE QTc 447 ms GEMUSE P Wave [place] 73 degrees GEMUSE R [place] 82 degrees GEMUSE T [place] 21 degrees GEMUSE ECG Interpretation Normal sinus rhythm No previous ECGs available Confirmed by MOISES BASHIR ([id number]) on 06/26/2025 8:05:58 AM GEMUSE 06/25/2025 5:30 PM EDT 06/26/2025 8:05 AM EDT us Cole Hyatt MD ECG ORDERABLES Final Result Performing Organization Address [facility] Co de Phone Number G[facility] * (ABNORMAL) Iron (06/22/2025 1:23 PM EDT) Iron 13(L) 40 - 150 mcg/dL LAB CHEMISTRY METHOD 06/22/2025 4:28 PM EDT [facility] Blood Venous blood specimen / Unknown Venipuncture / Unknown 06/22/2025 1:23 PM EDT 06/22/2025 3:45 PM EDT us Trish Fierro BRIQUETTE MACHINE OPERATOR HELPER LAB BLOOD ORDERABLES Final Res ult Performing Organization Address [facility] Co de Phone Number [facility] [address] [place] [address], [place] [phone] from Last 3 Months Insurance [facility] Care Teams Biomedical Engineering Professor Relationship Specialty Start Date End Date Bimal Baker MD [address] [phone] PCP - General Internal Medicine 07/02/25
--- OUTSIDE RECORDS SUMMARY | 2025-08-07 17:20 | XMS_ITS | Clinical Summary ---
Author Organization [facility] Address [address] [place] [address] Care Team Providers Care Inflated Pad Buffer Name Role Phone Shahid Navarro MD Primary Care Provider [phone] Allergies No known active allergies Medications Medication [...] age to complete this topic Care Teams Inflated Pad Buffer Relationship Specialty Start Date End Date Shahid Navarro MD [address] [place] [id number] PCP - General Internal Medicine 07/02/17
--- OUTSIDE RECORDS SUMMARY | 2025-08-07 17:20 | XMS_ITS | Encounter Summary ---
Author Organization [facility] [place] [address] Care Team Providers Care Cotton Inspector Name Role Phone Bimal Baker MD Primary Care Provider [phone] Encounter Details Date Type Department Care Team (Latest Contact Info) Description 07/10/2025 Lab Requisition [facility] [address] [facility] [employer] [place] [phone] Davie Howard MD [address] [phone] Encounter for screening for infections with a [...] Description 09/10/2025 11:15 AM EST Office Visit [facility] Hematology Oncology [address] [place] [address] Kin Staton MD [address] [place] [address] documented as of this encounter Procedures Procedure [...] vaginalis Negative Negative 07/11/2025 2:00 PM EDT [facility] Gardnerella vaginalis Positive(A) Negative 07/11/2025 2:00 PM EDT [facility] Sarah Species Negative Negative 2:00 PM EDT [facility] Swab Vaginal structure / Unknown 07/10/2025 07/10/2025 12:48 PM EDT us Davie Howard MD LAB MICROBIOLOGY - GENERAL ORD ERABLES Final Result [facility] [address] [place] [address], * Chlamydia trachomatis and Neisseria gonorrhoeae molecular study (07/10/2025 12:00 AM EDT) Neisseria gonorrhoeae PCR Negative Negative LAB MOLECULAR DIAGNOSTICS METHOD 07/10/2025 3:34 PM EDT [facility] Chlamydia trachomatis PCR Negative Negative LAB MOLECULAR DIAGNOSTICS METHOD 07/10/2025 3:34 PM EDT [facility] Swab Cervix uteri structure / Unknown 07/10/2025 07/10/2025 12:48 PM EDT us Davie Howard MD LAB MICROBIOLOGY - GENERAL ORD ERABLES Final Result [facility] [address] [place] [address], documented in this encounter Visit Diagnoses Diagnosis Encounter for screening for infections with a predominantly sexual mode of transmission Acute vaginitis Unspecified vaginitis and vulvovaginitis documented in this encounter Care Teams Cotton Inspector Relationship Specialty Start Date End Date Bimal Baker MD [address] [phone] PCP - General Internal Medicine 07/02/25 documented as of this encounter
--- OUTSIDE RECORDS SUMMARY | 2025-08-07 17:20 | XMS_ITS | Encounter Summary ---
Author Organization [place] [address] Care Team Providers Care Bulk Picker Name Role Phone Bimal Baker MD Primary Care Provider [phone] Encounter Details Date Type Department Care Team (Latest Contact Info) Description 07/11/2025 Lab Requisition [facility] - Main Lab [address] [facility] [place] [phone] Davie Howard MD [address] [phone] Encounter for gynecological examination (general) (routine) without [...] Description 09/10/2025 11:15 AM EST Office Visit [facility] Hematology Oncology [address] [place] [address] Kin Staton MD [address] [place] [address] documented as of this encounter Procedures Procedure [...] LAB MICROBIOLOGY METHOD 07/12/2025 6:[address] [facility] Brushing/Spatula Cervix uteri structure / Unknown 07/10/2025 07/11/2025 8:04 AM EDT Davie Howard MD LAB MOLECULAR DIAGNOSTICS SAADIA VALLADARES Final Result [facility] [address] [place] [address], * Pap smear (07/10/2025 12:00 AM EDT) Interpretation Negative for intraepithelial lesion or malignancy 07/19/2025 4:[address] [facility] at 1629 EDT General Categorization Negative 07/19/2025 4:[address] [facility] Other Findings Shift in elisa suggestive of bacterial vaginosis 07/19/2025 4:[address] [facility] LMP 07/04/2025 07/19/2025 4:[address] [facility] Specimen Adequacy Satisfactory for evaluation, endocervical/ladd sformation zone component absent 07/19/2025 4:[address] [facility] Pap Methodology Liquid Based Pap Test 07/19/2025 4:[address] [facility] Disclaimer The Pap test is a screening test which carries an inherent false negative rate. These test results should be correlated with the patient's clinical findings and history. This Pap test was processed using an automated screening system. Technical cytopathology services provided by [facility], at [address] [place] [id number] (CLIA # [id number]/Sam Stanton MD, Trip Follower.) 07/19/2025 4:[address] [facility] Console Pap Interpretation Reported 07/19/2025 4:[address] [facility] Brushing/Spatula Cervix uteri structure / Unknown 07/10/2025 07/11/2025 8:04 AM EDT us Davie Howard MD LAB CYTOLOGY ORDERABLES Final Result [facility] [address] [place] [address], documented in this encounter Visit Diagnoses Diagnosis Encounter for gynecological examination (general) (routine) without abnormal findings documented in this encounter Care Teams Bulk Picker Relationship Specialty Start Date End Date Bimal Baker MD [address] [phone] PCP - General Internal Medicine 07/02/25 documented as of this encounter
--- OUTSIDE RECORDS SUMMARY | 2025-08-07 17:20 | XMS_ITS | Patient Health Record ---
Author Organization [facility] [place] Address [address] [place] [address] Care Team Providers Care Coffee Attendant Name Role Phone Roberto Fierrona Unavailable [phone] Allergies No Known Allergies Reason For Referral Reason fell three weeks ago and fx her left arm. Did not get referred at that time. Still has original splint and some residual pain. Has appointment at [facility] tomorrow Diagnosis 1 Unspecified fracture of shaft of left ulna, initial encounter for closed fracture (S52.A) Referral Organization [facility] Referring Provider First Name Trish Referring Provider Last Name Sri Referred Provider Specialty Orthopedic S urgery Referral Priority Routine Reason patient wants to res ume iron infusions Diagnosis 1 Iron deficiency anem ia, unspecified (D50.9) Referral Organization [facility] Referring Provider First Name Trish Referring Provider Last Name Sri Referred Provider Specialty Hematology General Notes Trish Fierro 01:41:39 PM > Patient reports she was infused in the cancer treatment center Referral Priority Routine Medications Medication SIG (Take, Route, Frequency, Duration) Notes Start Date End Date Status Semaglutide (2 MG/DOSE) 8 MG/3ML Solution Pen-injector 1.25ml Subcutaneous weekly; Duration: 90 days 06/12/2025 Active Problems Problem Type SNOMED Code ICD Code Onset Dates Problem Status W/U Status Risk Notes Problem Iron deficiency anemia (31764810) Iron deficiency anemia, unspecified (D50.9) Active confirmed Vital Signs Heart Rate 79 /min 06/12/2025 Respiratory Rate 18 /min 06/12/2025 Blood pressure diastolic 80 mm Hg 06/12/2025 Weight-kg 70.76 kg 06/12/2025 Blood pressure systolic 120 mm Hg 06/12/2025 Weight 156 lbs 06/12/2025 Encounters Encounter Location Date Provider Diagnosis [facility] [place] [address] [place] [address] 06/12/2025 [facility] discharge follow-up Z09 and Weight loss counseling, encounter for Z71.3 Assessments Encounter Date Diagnosis (ICD Code) Assessment Notes Treatment Notes Treatment Clinical Notes Section Notes 06/12/2025 Weight loss counseling, encounter for (ICD-10 - Z71.3) patient seen in urgent care three weeks ago. Presents today for a referral to [facility] as she has a f/u appointlent tomorrow 06/12/2025 Hospital discharge follow-up (ICD-10 - Z09) patient seen in urgent care three weeks ago. Presents today for a referral to [facility] as she has a f/u appointlent tomorrow Plan Of Treatment No Information Insurance Providers Payer Name Payer Address Payer Phone Subscriber Number Group Number Insured Name Patient Relationship to Insured Coverage Start Date Coverage End Date Dan[facility] [address] [address] [place] [address] [id number] TONY YADAV Self - patient is the insured
== END 2025-08-07 14:31 | disposition home or self-care (01) ==
LOC: HO.HOS 13:27
DX: S52.202G Unspecified fracture of shaft of left ulna, subsequent encounter for closed fracture with delayed healing (principal)
CPT/HCPCS: 99024

== ENCOUNTER 2025-08-21 14:49 | Outpatient (REF) | payer BC, SELFPAY ==
--- OUTSIDE RECORDS SUMMARY | 2025-08-21 16:35 | XMS_ITS | Clinical Summary ---
Author Organization [facility] Address [address] [place] [address] Phone Care Team Providers Care Wire Steward Name Role Phone Bimal Baker MD Primary Care Provider [phone] Allergies No known active allergies Medications No known medications Active Problems Problem Noted Date Diagnosed Date Iron deficiency anemia due to chronic blood loss 07/02/2025 Encounters Date Type Department Care Team Description 07/20/2025 2:00 PM EDT - 07/20/2025 11:59 PM EDT Hospital Encounter [address] [phone] Iron deficiency anemia due to chronic blood loss (Primary Dx) Discharge Disposition: Home or Self Care 07/17/2025 1:44 PM EDT - 07/17/2025 11:59 PM EDT Hospital Encounter [facility] [address] [place] [phone] Iron deficiency anemia due to chronic blood loss (Primary Dx) Discharge Disposition: Home or Self Care 07/11/2025 1:00 PM EDT - 07/11/2025 11:59 PM EDT Hospital Encounter [facility] [address] [place] [phone] Iron deficiency anemia due to chronic blood loss (Primary Dx) Discharge Disposition: Home or Self Care 07/11/2025 Lab Requisition [facility] [address] [facility] [place] [phone] Davie Howard MD Encounter for gynecological examination (general) (routine) without abnormal findings 07/10/2025 Lab Requisition [facility] [address] [facility] [place] [phone] Davie Howard MD Encounter for screening for infections with a predominantly sexual mode of transmission; Acute vaginitis 07/02/2025 3:15 PM EDT Office Visit [facility] Hematology Oncology [address] [place] [phone] Kin Staton MD Microcytic anemia (Primary Dx); Iron deficiency anemia 06/25/2025 5:55 PM EDT - 06/25/2025 9:43 PM EDT Emergency [facility] Emergency [address] [place] [phone] Cole Hyatt MD Depression, unspecified depression type (Primary Dx); Anxiety Discharge Disposition: Home or Self Care 06/22/2025 Telephone [facility] Hematology Oncology [address] [place] [phone] Trish Fierro NP from Last 3 Months Surgical History Surgery Date Site/Laterality Comments SECTION PROCEDURE: HISTORICAL CERVICAL BIOPSY W/ LOOP ELEC TRODE EXCISION PROCEDURE: ME CONIZATION CERVIX W/WO D&C RPR ELTRD EXC SALPINGOOPHORECTOMY Bilateral PROCEDURE: ME LAPAROSCOPY W/RMVL ADNEXAL STRUCTURES; COMMENT: Salpingectomy only [...] Description 09/10/2025 11:15 AM EST Office Visit [facility] Hematology Oncology [address] [place] [phone] Kin Staton MD [address] [place] [address] Health Maintenance Due Date Last Done Comments Breast Cancer Screening 1983 Hepatitis B Vaccines (1 of 3 - 19+ 3-dose series) 2002 HPV Vaccines (1 - 3-dose SCD M series) 2010 DTaP,Tdap,and Td Vaccines (2 - Td or Tdap) 07/20/2022 07/20/2012 HIV Screening 09/12/2022 Hepatitis C Screening 09/12/2022 Social Influencers of Health Screening 09/12/2022 Depression Screening 10/11/2024 COVID-19 Vaccine ( - 2024-2 6 season) 2025 Influenza Vaccine (#1) 2025 Cervical [...] reflex genotype (07/10/2025 12:00 AM EDT) Pathologist [facility] HPV Negative Negative LAB MICROBIOLOGY METHOD 07/12/2025 6:17 AM EDT [facility] Brushing/Spatula Cervix uteri structure / Unknown 07/10/2025 07/11/2025 8:04 AM EDT Davie Howard MD LAB MOLECULAR DIAGNOSTICS ORDE RABLES Final Result [facility] [address] [place] [address], [place] [phone] * (ABNORMAL) Vaginitis pathogens molecular study (07/10/2025 12:00 AM EDT) [facility] Trichomonas vaginalis Negative Negative 07/11/2025 2:00 PM EDT [facility] Gardnerella vaginalis Positive(A) Negative 07/11/2025 2:00 PM EDT [facility] Sarah Species Negative Negative 2:00 PM EDT [facility] Swab Vaginal structure / Unknown 07/10/2025 07/10/2025 12:48 PM EDT us Davie Howard MD LAB MICROBIOLOGY - GENERAL ORD ERABLES Final Result [facility] [address] [place] [address], [place] [phone] * Chlamydia trachomatis and Neisseria gonorrhoeae molecular study (07/10/2025 12:00 AM EDT) Pathologist [facility] Neisseria gonorrhoeae PCR Negative Negative LAB MOLECULAR DIAGNOSTICS METHOD 07/10/2025 3:34 PM EDT [facility] Chlamydia trachomatis PCR Negative Negative LAB MOLECULAR DIAGNOSTICS METHOD 07/10/2025 3:34 PM EDT [facility] Swab Cervix uteri structure / Unknown 07/10/2025 07/10/2025 12:48 PM EDT us Davie Howard MD LAB MICROBIOLOGY - GENERAL ORD ERABLES Final Result [facility] [address] [place] [address], * Pap smear (07/10/2025 12:00 AM EDT) Interpretation Negative for intraepithelial lesion or malignancy 07/19/2025 4:29 PM EDT [facility] at 1629 EDT General Categorization Negative 07/19/2025 4:29 PM EDT [facility] Other Findings Shift in elisa suggestive of bacterial vaginosis 07/19/2025 4:29 PM EDT [facility] LMP 07/04/2025 07/19/2025 4:29 PM EDT [facility] Specimen Adequacy Satisfactory for evaluation, endocervical/ladd sformation zone component absent 07/19/2025 4:29 PM EDT [facility] Pap Methodology Liquid Based Pap Test 07/19/2025 4:29 PM EDT [facility] Disclaimer The Pap test is a screening test which carries an inherent false negative rate. These test results should be correlated with the patient's clinical findings and history. This Pap test was processed using an automated screening system. Technical cytopathology services provided by [facility], at [address] [place] [id number] (CLIA # [id number]/Sam Stanton MD, County Demonstrator.) 07/19/2025 4:29 PM T [facility] Console Pap Interpretation Reported 07/19/2025 4:29 PM EDT [facility] Brushing/Spatula Cervix uteri structure / Unknown 07/10/2025 07/11/2025 8:04 AM EDT Davie Howard MD LAB CYTOLOGY ORDERABLES Final Result Performing Organization Address [facility]/ZIP Co de Phone Number [facility] [address] [place] [address], [place] [phone] * (ABNORMAL) Vitamin B12 and folate (07/02/2025 3:50 PM EDT) [facility] Vitamin B-12 1,710(H) 250 - 900 pcg/mL LAB CHEMISTRY METHOD 07/02/2025 5:39 PM EDT [facility] Folate 13.7 2.8 - 17.0 ng/ml LAB CHEMISTRY METHOD 07/02/2025 5:39 PM EDT [facility] Blood Venous blood specimen / Unknown Venipuncture / Unknown 07/02/2025 3:50 PM EDT 07/02/2025 4:31 PM EDT Kin Staton MD LAB BLOOD ORDERABLES Final R esult Performing Organization Address City/[facility] Co de Phone Number [facility] [address] [place] [address], [place] [phone] * (ABNORMAL) CBC auto differential (07/02/2025 3:50 PM EDT) Only the most recent of2 resultswithin the time period is included. [facility] WBC 5.9 4.8 - 10.8 K/[facility] LAB HEMETOLOGY METHOD 07/02/2025 4:43 PM EDT [facility] RBC 4.60 3.80 - 4.80 M/mcL LAB HEMETOLOGY METHOD 07/02/2025 4:43 PM EDT [facility] Hemoglobin 8.1(L) 11.5 - 16.0 g/dL LAB HEMETOLOGY METHOD 07/02[facility]2025 [facility] Hematocrit 28.1(L) 35.0 - 47.0 % LAB HEMETOLOGY METHOD 07/02/2025 4:43 PM [facility] MCV 61.2(L) 79.0 - 98.0 FL LAB HEMETOLOGY METHOD 07/02/2025 4:[facility] MCH 17.6(L) 27.0 - 32.0 pcg LAB HEMETOLOGY METHOD 07/02/2025 4:43 PM [facility] MCHC 28.8(L) 32.0 - 37.0 g/dL LAB HEMETOLOGY METHOD 07/02/2025 4:43 PM [facility] RDW 20.0(H) 11.0 - 15.0 % LAB HEMETOLOGY METHOD 07/02/2025 4:43 PM [facility] Platelets 550(H) 130 - 400 K/mcL LAB HEMETOLOGY METHOD 07/02/2025 4:43 PM [facility] MPV 10.0 7.0 - 11.0 FL LAB HEMETOLOGY METHOD 07/02/2025 4:43 PM [facility] NRBC 0.0 <1.0 % LAB HEMETOLOGY METHOD 07/02/2025 4:43 [facility] NRBC Absolute 0.00 <0.10 K/mcL LAB HEMETOLOGY METHOD 07/02/2025 4:43 PM [facility] Neutrophils Relative 63.4 % LAB HEMETOLOGY METHOD 07/02/2025 4:43 PM [facility] Lymphocytes Relative 23.1 % LAB HEMETOLOGY METHOD 07/02/2025 4:43 [facility] Monocytes Relative 8.6 % LAB HEMETOLOGY METHOD 07/02/2025 4:43 PM EDT [facility] Eosinophils Relative 4.1 % LAB HEMETOLOGY METHOD 07/02/2025 4:43 PM EDT [facility] Basophils Relative 0.5 % LAB HEMETOLOGY METHOD 07/02/2025 4:43 PM EDT [facility] Immature Granulocytes Relative 0.3 % LAB HEMETOLOGY METHOD 07/02/2025 4:43 PM EDT [facility] Neutrophils Absolute 3.74 1.50 - 7.00 K/mcL LAB HEMETOLOGY METHOD 07/02/2025 4:43 PM EDT [facility] Lymphocytes Absolute 1.36 1.00 - 5.00 K/mcL LAB HEMETOLOGY METHOD 07/02/2025 4:43 PM EDT [facility] Monocytes Absolute 0.51 0.20 - 1.00 K/mcL LAB HEMETOLOGY METHOD 07/02/2025 4:43 PM EDT [facility] Eosinophils Absolute 0.24 0.00 - 0.50 K/mcL LAB HEMETOLOGY METHOD 07/02/2025 4:43 PM EDT [facility] Basophils Absolute 0.03 0.00 - 0.20 K/mcL LAB HEMETOLOGY METHOD 07/02/2025 4:43 PM EDT [facility] Immature Granulocytes Absolute 0.02 0.00 - 0.03 K/mcL LAB HEMETOLOGY METHOD 07/02/2025 4:43 PM EDT [facility] Blood Venous blood specimen / Unknown Venipuncture / Unknown 07/02/2025 3:50 PM EDT 07/02/2025 4:31 PM EDT us Kin Staton MD LAB BLOOD ORDERABLES Final R esult [facility] [address] [place] [address], * (ABNORMAL) Hemoglobin electrophoresis (07/02/2025 3:50 PM EDT) Pathologist [facility] Hemoglobin A1 98.9(H) 96.5 - 97.8 % [...] thalassemia, and delta thalassemia. Test performed at [facility], [address], [place] [address] Abigail Perez MD, PhD - County [employer] Blood Venous blood specimen / Unknown Venipuncture / Unknown 07/02/2025 3:50 PM EDT 07/02/2025 4:31 PM EDT Kin Staton MD LAB BLOOD ORDERABLES Final R esult [facility] [address] [place] [address] * (ABNORMAL) Iron and TIBC (07/02/2025 3:50 PM EDT) [facility] Iron 10(L) 40 - 150 mcg/dL LAB CHEMISTRY METHOD 07/02/2025 5:39 PM EDT [facility] TIBC 463(H) 250 - 450 mcg/dL LAB CHEMISTRY METHOD 07/02/2025 5:39 PM EDT [facility] Iron Saturation 2(L) 15 - 50 % LAB CHEMISTRY METHOD 07/02/2025 5:39 PM EDT [facility] Blood Venous blood specimen / Unknown Venipuncture / Unknown 07/02/2025 3:50 PM EDT 07/02/2025 4:31 PM EDT Kin Staton MD LAB BLOOD ORDERABLES Final R esult Performing Organization Address City/[facility]/ZIP Co de Phone Number [facility] [address] [place] [address], [place] [phone] * (ABNORMAL) Ferritin (07/02/2025 3:50 PM EDT) Pathologist [facility] Ferritin 3(L) 8 - 252 ng/mL LAB CHEMISTRY METHOD 07/02/2025 5:55 PM EDT [facility] Comment:Results verified by repeat testing Blood Venous blood specimen / Unknown Venipuncture / Unknown 07/02/2025 3:50 PM EDT 07/02/2025 4:31 PM EDT Kin Staton MD LAB BLOOD ORDERABLES Final R esult Performing Organization Address [facility] Co de Phone Number [facility] [address] [place] [address], [place] [phone] * ECG-Annotated (06/26/2025) Provider Onbase ECG ORDERABLES Final Result * POC , urine manually resulted (06/25/2025 6:49 PM EDT) HCG, Ur POC Negative Negative POC hCG Int QC Pass? Yes Yes EXPIRATION DATE POC 12/19/2026 LOT NUMBER POC [id number] Urine Urine specimen obtained by clean catch procedure / Unknown 06/25/2025 6:49 PM EDT Cole Hyatt MD POINT OF CARE TEST ENTER/EDIT OR DERABLES Final Result * Drug abuse screen 8a panel, urine (06/25/2025 6:44 PM EDT) Amphetamine Screen, Ur Negative Negative LAB CHEMISTRY METHOD 06/25/2025 7:40 PM EDT [facility] Comment:Certain OTC medicati ons containing ephedrine, phenylephrine, pseudoephedrine and phenylpropanolamine can cause false positive results. Barbiturate Screen, Ur Negative Negative LAB CHEMISTRY METHOD 06/25/2025 7:40 PM EDT [facility] Benzodiazepine Screen, Ur Negative Negative LAB CHEMISTRY METHOD 06/25/2025 7:40 PM EDT [facility] Cocaine Screen, Ur Negative Negative LAB CHEMISTRY METHOD 06/25/2025 7:40 PM EDT [facility] Opiate Screen, Ur Negative Negative LAB CHEMISTRY METHOD 06/25/2025 7:40 PM EDT [facility] Cannabinoid (THC) Screen, Ur Negative Negative LAB CHEMISTRY METHOD 06/25/2025 7:40 PM EDT [facility] Comment:Specimens from patie nts taking pantoprazole sodium (Protonix) have been shown to produce false positive results. Oxycodone Screen, Ur Negative Negative LAB CHEMISTRY METHOD 06/25/2025 7:40 PM EDT [facility] Fentanyl, Ur Negative Negative LAB CHEMISTRY METHOD 06/25/2025 7:40 PM EDT [facility] Urine Urine specimen obtained by clean catch procedure / Unknown Non-blood Collection / Unknown 06/25/2025 6:44 PM EDT 06/25/2025 6:58 PM EDT Narrative [facility] - 06/25/2025 7:40 PM EDT [...] ORDERABLES Final Resul t Performing Organization Address [facility] de Phone Number [facility] [address] [place] [address], * Buprenorphine screen, urine (06/25/2025 6:44 PM EDT) Buprenorphine Screen Urine Negative Negative LAB CHEMISTRY METHOD 06/25/2025 7:40 PM EDT [facility] Urine Urine specimen obtained by clean catch procedure / Unknown Non-blood Collection / Unknown 06/25/2025 6:44 PM EDT 06/25/2025 6:58 PM EDT Narrative [facility] - 06/25/2025 7:40 PM EDT Assay cutoff 5 ng/mL Semi-quantitative assay for screening purposes only. Unconfirmed screening result should not be used for non-medical purposes. *ALTERNATE METHOD CONFIRMATION DONE UPON REQUEST ONLY* Cole Hyatt MD LAB URINE ORDERABLES Final Resul t Performing Organization Address [facility] de Phone Number [facility] [address] [place] [address], * Methadone, urine (06/25/2025 6:44 PM EDT) Methadone Screen, Urine Negative Negative LAB CHEMISTRY METHOD 06/25/2025 7:40 PM EDT [facility] Comment: Assay cutoff 300 ng/mL [...] ORDERABLES Final Resul t Performing Organization Address City/[facility]/ZIP Co de Phone Number [facility] [address] [place] [address], [place] [phone] * Phencyclidine, urine (06/25/2025 6:44 PM EDT) PCP Scrn, Ur Negative Negative LAB CHEMISTRY METHOD 06/25/2025 7:40 PM EDT [facility] Comment: Assay cutoff 25 ng/mL [...] ORDERABLES Final Resul t Performing Organization Address [facility]/ZIP Co de Phone Number [facility] [address] [place] [address], [place] [phone] * Thyroid stimulating hormone with reflex to free t4 and free t3 (06/25/2025 6:43 PM EDT) TSH 1.67 0.40 - 4.00 mcIU/mL LAB CHEMISTRY METHOD 06/25/2025 7:59 PM EDT [facility] Blood Venous blood specimen / Unknown Venipuncture / Unknown 06/25/2025 6:43 PM EDT 06/25/2025 6:58 PM EDT us Cole Hyatt MD LAB BLOOD ORDERABLES Final Resul t Performing Organization Address City/[facility]/ZIP Co de Phone Number [facility] [address] [place] [address], [place] [phone] * Ethanol (06/25/2025 6:43 PM EDT) Ethanol Level <3 0 - 10 mg/dL LAB CHEMISTRY METHOD 06/25/2025 7:31 PM EDT [facility] Blood Venous blood specimen / Unknown Venipuncture / Unknown 06/25/2025 6:43 PM EDT 06/25/2025 6:58 PM EDT us Cole Hyatt MD LAB BLOOD ORDERABLES Final Resul t Performing Organization Address [facility]/ZIP Co de Phone Number [facility] [address] [place] [address], [place] [phone] * (ABNORMAL) Acetaminophen level (06/25/2025 6:43 PM EDT) Acetaminophen Level <2.0(L) 10.0 - 30.0 mcg/mL LAB CHEMISTRY METHOD 06/25/2025 7:37 PM EDT [facility] Blood Venous blood specimen / Unknown Venipuncture / Unknown 06/25/2025 6:43 PM EDT 06/25/2025 6:58 PM EDT us Cole Hyatt MD LAB BLOOD ORDERABLES Final Resul t Performing Organization Address [facility]/ZIP Co de Phone Number [facility] [address] [place] [address], [place] [phone] * (ABNORMAL) Salicylate level (06/25/2025 6:43 PM EDT) Salicylate Level <1.7(L) 2.0 - 29.0 mg/dL LAB CHEMISTRY METHOD 06/25/2025 7:31 PM EDT [facility] Blood Venous blood specimen / Unknown Venipuncture / Unknown 06/25/2025 6:43 PM EDT 06/25/2025 6:58 PM EDT us Cole Hyatt MD LAB BLOOD ORDERABLES Final Resul t [facility] [address] [place] [address], * Comprehensive metabolic panel (06/25/2025 6:43 PM EDT) Sodium 137 133 - 145 mmol/L LAB CHEMISTRY METHOD [facility]2025 [facility] Potassium 3.8 3.5 - 5.5 mmol/L LAB CHEMISTRY METHOD 06/25/2025 7:32 PM [facility] Chloride 105 96 - 110 mmol/L LAB CHEMISTRY METHOD 06/25/2025 7:32 PM [facility] CO2 25 21 - 32 mmol/L LAB CHEMISTRY METHOD 06/25/2025 7:32 PM [facility] Anion Gap 7 3 - 11 LAB CHEMISTRY METHOD 06/25/2025 7:32 PM [facility] Glucose 89 70 - 100 mg/dL LAB CHEMISTRY METHOD 06/25/2025 7:32 PM [facility] BUN 11 5 - 25 mg/dL LAB CHEMISTRY METHOD 06/25/2025 7:32 PM [facility] Creatinine 0.79 0.50 - 1.10 mg/dL LAB CHEMISTRY METHOD 06/25/2025 7:32 PM [facility] eGFR 97 >=60 mL/min/1. 73m2 LAB CHEMISTRY METHOD 06/25/2025 7:32 PM [facility] Comment:Calculation based on the Chronic Kidney Disease Epidemiology Collaboration (CKD-EPI) equation refit without adjustment for race. BUN/Creatinine Ratio 13.9 LAB CHEMISTRY METHOD 06/25/2025 7:32 PM [facility] Calcium 8.9 8.5 - 10.5 mg/dL LAB CHEMISTRY METHOD 06/25/2025 7:32 PM EDT [facility] AST (SGOT) 13 10 - 42 unit/L LAB CHEMISTRY METHOD 06/25/2025 7:32 PM EDT [facility] ALT (SGPT) 17 10 - 60 unit/L LAB CHEMISTRY METHOD 06/25/2025 7:32 PM EDT [facility] Alkaline Phosphatase 65 42 - 121 unit/L LAB CHEMISTRY METHOD 06/25/2025 7:32 PM EDT [facility] Total Protein 7.4 6.0 - 8.0 g/dL LAB CHEMISTRY METHOD 06/25/2025 7:32 PM EDT [facility] Albumin 3.8 3.2 - 5.0 g/dL LAB CHEMISTRY METHOD 06/25/2025 7:32 PM EDT [facility] Total Bilirubin 0.2 0.0 - 1.4 mg/dL LAB CHEMISTRY METHOD 06/25/2025 7:32 PM EDT [facility] Blood Venous blood specimen / Unknown Venipuncture / Unknown 06/25/2025 6:43 PM EDT 06/25/2025 6:58 PM EDT Cole Hyatt MD LAB BLOOD ORDERABLES Final Resul t [facility] [address] [place] [address], * ECG 12 lead (06/25/2025 5:30 PM EDT) Ventricular Rate ECG 94 BPM GEMUSE Atrial Rate 94 BPM GEMUSE P-R Interval 152 ms GEMUSE QRS Duration 72 ms GEMUSE Q-T Interval 358 ms GEMUSE QTc 447 ms GEMUSE P Wave [place] 73 degrees GEMUSE R [place] 82 degrees GEMUSE T [place] 21 degrees GEMUSE ECG Interpretation Normal sinus rhythm No previous ECGs available Confirmed by MOISES BASHIR ([id number]) on 06/26/2025 8:05:58 AM GEMUSE 06/25/2025 5:30 PM EDT 06/26/2025 8:05 AM EDT us Cole Hyatt MD ECG ORDERABLES Final Result Performing Organization Address [facility] Co de Phone Number [facility] * (ABNORMAL) Iron (06/22/2025 1:23 PM EDT) Iron 13(L) 40 - 150 mcg/dL LAB CHEMISTRY METHOD 06/22/2025 4:28 PM EDT [facility] Blood Venous blood specimen / Unknown Venipuncture / Unknown 06/22/2025 1:23 PM EDT 06/22/2025 3:45 PM EDT us Trish Fierro DOCUMENT CONTROLLER LAB BLOOD ORDERABLES Final Res ult Performing Organization Address [facility] Co de Phone Number [facility] [address] [place] [address], [place] [phone] from Last 3 Months Insurance [facility] Care Teams Wire Steward Relationship Specialty Start Date End Date Bimal Baker MD [address] [phone] PCP - General Internal Medicine 07/02/25
--- OUTSIDE RECORDS SUMMARY | 2025-08-21 16:35 | XMS_ITS | Patient Health Record ---
Author Organization [facility] [place] Address [address] [facility] [address] [place] [address] Care Team Providers Care Testing Manager Name Role Phone Trish Fierro Unavailable [phone] Allergies No Known Allergies Reason For Referral Reason fell three weeks ago and fx her left arm. Did not get referred at that time. Still has original splint and some residual pain. Has appointment at [facility] tomorrow Diagnosis 1 Unspecified fracture of shaft of left ulna, initial encounter for closed fracture (S52.A) Referral Organization [facility] Referring Provider First Name Trish Referring Provider Last Name Sri Referred Provider Specialty Orthopedic S urgery Referral Priority Routine Reason patient wants to res ume iron infusions Diagnosis 1 Iron deficiency anem ia, unspecified (D50.9) Referral Organization [facility] Referring Provider First Name Trish Referring Provider [...] Status Risk Notes Problem Iron deficiency anemia (05676996) Iron deficiency anemia, unspecified (D50.9) Active confirmed Vital Signs Heart Rate 79 /min 06/12/2025 Respiratory Rate 18 /min 06/12/2025 Blood pressure diastolic 80 mm Hg 06/12/2025 Weight-kg 70.76 kg 06/12/2025 Blood pressure systolic 120 mm Hg 06/12/2025 Weight 156 lbs 06/12/2025 Encounters Encounter Location Date Provider Diagnosis [facility] [place] [address] [place] [address] 06/12/2025 Trish [facility] discharge follow-up Z09 and Weight loss counseling, encounter for Z71.3 Assessments Encounter Date Diagnosis (ICD Code) Assessment Notes Treatment Notes Treatment Clinical Notes Section Notes 06/12/2025 Weight loss counseling, encounter for (ICD-10 - Z71.3) patient seen in urgent care three weeks ago. Presents today for a referral to [facility] as she has a f/u appointlent tomorrow 06/12/2025 Hospital discharge follow-up (ICD-10 - Z09) patient seen in urgent care three weeks ago. Presents today for a referral to [facility] as she has a f/u appointlent tomorrow Plan Of Treatment No Information Insurance Providers Payer Name Payer Address Payer Phone Subscriber Number Group Number Insured Name Patient Relationship to Insured Coverage Start Date Coverage End Date [facility] [address] [address] [place] [address] [id number] TONY YADAV Self - patient is the insured
--- OUTSIDE RECORDS SUMMARY | 2025-08-21 16:35 | XMS_ITS | Encounter Summary ---
Author Organization [facility] [place] [address] Care Team Providers Care Test Desk Trouble Locator Name Role Phone Bimal Baker MD Primary Care Provider [phone] Encounter Details Date Type Department Care Team (Latest Contact Info) Description 07/11/2025 Lab Requisition [facility] - Main Lab 299 [facility] [place] [phone] Davie Howard MD [address] [phone] Encounter for gynecological examination (general) (routine) without [...] Description 09/10/2025 11:15 AM EST Office Visit [facility] Hematology Oncology [address] [place] [address] Kin Staton MD [address] [place] [address] documented as of this encounter Procedures Procedure [...] LAB MICROBIOLOGY METHOD 07/12/2025 6:17 AM EDT [facility] Brushing/Spatula Cervix uteri structure / Unknown 07/10/2025 07/11/2025 8:04 AM EDT Davie Howard MD LAB MOLECULAR DIAGNOSTICS SAADIA VALLADARES Final Result [facility] [address] [place] [address], * Pap smear (07/10/2025 12:00 AM EDT) Interpretation Negative for intraepithelial lesion or malignancy 07/19/2025 4:29 PM EDT [facility] at 1629 EDT General Categorization Negative 07/19/2025 4:29 PM EDT [facility] Other Findings Shift in elisa suggestive of bacterial vaginosis 07/19/2025 4:29 PM EDT [facility] LMP 07/04/2025 07/19/2025 4:29 PM EDT [facility] Specimen Adequacy Satisfactory for evaluation, endocervical/ladd sformation zone component absent 07/19/2025 4:29 PM EDT [facility] Pap Methodology Liquid Based Pap Test 07/19/2025 4:29 PM EDT [facility] Disclaimer The Pap test is a screening test which carries an inherent false negative rate. These test results should be correlated with the patient's clinical findings and history. This Pap test was processed using an automated screening system. Technical cytopathology services provided by [facility], at [address] [place] [id number] (CLIA # [id number]/Sam Stanton MD, Airport Operations Supervisor.) 07/19/2025 4:29 PM EDT [facility] Console Pap Interpretation Reported 07/19/2025 4:29 PM EDT [facility] Brushing/Spatula Cervix uteri structure / Unknown 07/10/2025 07/11/2025 8:04 AM EDT us Davie Howard MD LAB CYTOLOGY ORDERABLES Final Result [facility] [address] [place] [address], documented in this encounter Visit Diagnoses Diagnosis Encounter for gynecological examination (general) (routine) without abnormal findings documented in this encounter Care Teams Test Desk Trouble Locator Relationship Specialty Start Date End Date Bimal Baker MD [address] [phone] PCP - General Internal Medicine 07/02/25 documented as of this encounter
--- OUTSIDE RECORDS SUMMARY | 2025-08-21 16:35 | XMS_ITS | Encounter Summary ---
Author Organization [facility] [place] [address] Care Team Providers Care Accuracy Expert Name Role Phone Bimal Baker MD Primary Care Provider [phone] Encounter Details Date Type Department Care Team (Latest Contact Info) Description 07/10/2025 Lab Requisition [facility] - Main Lab 299 [facility] [place] [phone] Davie Howard MD [address] [phone] Encounter for screening for infections with a [...] Description 09/10/2025 11:15 AM EST Office Visit [facility] Hematology Oncology [address] [place] [address] Kin Staton MD [address] [place] [address] documented as of this encounter Procedures Procedure [...] vaginalis Negative Negative 07/11/2025 2:[address] [facility] Gardnerella vaginalis Positive(A) Negative 07/11/2025 2:[address] [facility] Sarah Species Negative Negative 2:[address] [facility] Swab Vaginal structure / Unknown 07/10/2025 07/10/2025 12:48 PM EDT us Davie Howard MD LAB MICROBIOLOGY - GENERAL ORD ERABLES Final Result [facility] [address] [place] [address], * Chlamydia trachomatis and Neisseria gonorrhoeae molecular study (07/10/2025 12:00 AM EDT) Neisseria gonorrhoeae PCR Negative Negative LAB MOLECULAR DIAGNOSTICS METHOD 07/10/2025 3:[address] [facility] Chlamydia trachomatis PCR Negative Negative LAB MOLECULAR DIAGNOSTICS METHOD 07/10/2025 3:[address] [facility] Swab Cervix uteri structure / Unknown 07/10/2025 07/10/2025 12:48 PM EDT us Davie Howard MD LAB MICROBIOLOGY - GENERAL ORD ERABLES Final Result [facility] [address] [place] [address], documented in this encounter Visit Diagnoses Diagnosis Encounter for screening for infections with a predominantly sexual mode of transmission Acute vaginitis Unspecified vaginitis and vulvovaginitis documented in this encounter Care Teams Accuracy Expert Relationship Specialty Start Date End Date Bimal Baker MD [address] [phone] PCP - General Internal Medicine 07/02/25 documented as of this encounter
== END 2025-08-21 14:50 | disposition home or self-care (01) ==
LOC: HO.HOSX 14:49
DX: Z13.89 Encounter for screening for other disorder (principal)

== ENCOUNTER 2025-08-23 12:58 | Outpatient (RCR) | payer BC, SELFPAY ==
--- NOTE | 2025-08-23 14:44 | MHC.OT.EP ---
[facility] Office [address] [phone] F: [phone] F: [phone] Occupational Therapy Plan of Care Patient Name: Genet Owens Date of Evaluation: 08/23/25 Diagnosis: L Ulna shaft fracture Pain Location: Pain Score: Pain Scale Used: Aggravating Factors: Alleviating Factors: Assessment: Frequency and Duration: The patient will be seen Short Term Goals: Snf Goals: no goals established here for orhtoses only Treatment Plan: Splinting Patient Education orthoses only 1 x visit will follow up as needed Electronically Signed By: Akiko Coburn OTR/L Please Sign and return to therapist. Thank you once again for your referral.
== END 2025-08-23 14:47 | disposition home or self-care (01) ==
LOC: HO.OT 12:58
PROVIDERS: PCP Internal Medicine; Visit Provider Orthopaedic Surgery
DX: S52.202G Unspecified fracture of shaft of left ulna, subsequent encounter for closed fracture with delayed healing (principal)
CPT/HCPCS: 29105; 97166